=== PATIENT | male | born 1935 | race Caucasian/White ===

== ENCOUNTER → 2016-10-28 | Outpatient (CLI) | payer OTHER, BC ==
[2016-10-28 09:15] LABS: INR 1.1 (0.9-1.1); PROTHROMBIN TIME (PATIENT) 12.3 SECONDS (9.0-12.0)
== END | disposition home or self-care (01) ==
LOC: C.LABSPEC 08:51
PROVIDERS: ATTEND Internal Medicine
DX: I48.91 Unspecified atrial fibrillation (principal); Z51.81 Encounter for therapeutic drug level monitoring; Z79.01 Long term (current) use of anticoagulants

== ENCOUNTER → 2016-10-30 | Outpatient (CLI) | payer OTHER, BC ==
[2016-10-30 12:06] LABS: INR 1.6 (0.9-1.1); PROTHROMBIN TIME (PATIENT) 17.1 SECONDS (9.0-12.0)
== END | disposition home or self-care (01) ==
LOC: C.LABSPEC 08:35
PROVIDERS: ATTEND Pharmacist Pharmacotherapy
DX: Z51.81 Encounter for therapeutic drug level monitoring (principal); Z79.01 Long term (current) use of anticoagulants; I48.91 Unspecified atrial fibrillation

== ENCOUNTER → 2016-11-02 | Outpatient (CLI) | payer OTHER, BC ==
[2016-11-02 09:48] LABS: INR 2.6 (0.9-1.1); PROTHROMBIN TIME (PATIENT) 29.5 SECONDS (9.0-12.0)
== END | disposition home or self-care (01) ==
LOC: C.LABVPSUA 09:21
PROVIDERS: ATTEND Pharmacist Pharmacotherapy
DX: I48.91 Unspecified atrial fibrillation (principal); Z79.01 Long term (current) use of anticoagulants

== ENCOUNTER → 2016-11-06 | Outpatient (CLI) | payer OTHER, BC ==
[2016-11-06 09:54] LABS: INR 2.5 (0.9-1.1); PROTHROMBIN TIME (PATIENT) 28.2 SECONDS (9.0-12.0)
== END ==
LOC: C.LABVPSUA 09:19
PROVIDERS: ATTEND Pharmacist Pharmacotherapy
DX: I48.91 Unspecified atrial fibrillation (principal); Z51.81 Encounter for therapeutic drug level monitoring; Z79.01 Long term (current) use of anticoagulants

== ENCOUNTER → 2016-11-13 | Outpatient (CLI) | payer OTHER, BC ==
[2016-11-13 10:36] LABS: INR 3.2 (0.9-1.1); PROTHROMBIN TIME (PATIENT) 35.6 SECONDS (9.0-12.0)
== END | disposition home or self-care (01) ==
LOC: C.LABVPSUW 09:28
PROVIDERS: ATTEND Pharmacist Pharmacotherapy
DX: I48.91 Unspecified atrial fibrillation (principal); Z51.81 Encounter for therapeutic drug level monitoring; Z79.01 Long term (current) use of anticoagulants

== ENCOUNTER → 2016-11-20 | Outpatient (CLI) | payer OTHER, BC ==
[2016-11-20 09:49] LABS: INR 2.5 (0.9-1.1); PROTHROMBIN TIME (PATIENT) 27.6 SECONDS (9.0-12.0)
== END | disposition home or self-care (01) ==
LOC: C.LABVPSUA 08:42
PROVIDERS: ATTEND Pharmacist Pharmacotherapy
DX: I48.91 Unspecified atrial fibrillation (principal); Z51.81 Encounter for therapeutic drug level monitoring; Z79.01 Long term (current) use of anticoagulants

== ENCOUNTER → 2016-11-30 | Outpatient (CLI) | payer OTHER, BC | END | disposition home or self-care (01) | LOC: C.LABVPSUW 09:28 | PROVIDERS: ATTEND Pharmacist Pharmacotherapy | DX: Z51.81 Encounter for therapeutic drug level monitoring (principal); Z79.01 Long term (current) use of anticoagulants; I48.91 Unspecified atrial fibrillation ==

== ENCOUNTER → 2016-12-03 | Outpatient (CLI) | payer OTHER, BC ==
[2016-12-03 10:42] LABS: INR 2.3 (0.9-1.1); PROTHROMBIN TIME (PATIENT) 25.4 SECONDS (9.0-12.0)
== END | disposition home or self-care (01) ==
LOC: C.LABVPSUW 07:53
PROVIDERS: ATTEND Pharmacist Pharmacotherapy
DX: I48.91 Unspecified atrial fibrillation (principal); Z51.81 Encounter for therapeutic drug level monitoring; Z79.01 Long term (current) use of anticoagulants

== ENCOUNTER → 2016-12-24 | Outpatient (CLI) | payer OTHER, BC ==
[2016-12-24 09:42] LABS: INR 2.3 (0.9-1.1); PROTHROMBIN TIME (PATIENT) 25.4 SECONDS (9.0-12.0)
== END | disposition home or self-care (01) ==
LOC: C.LABVPSUA 09:22
PROVIDERS: ATTEND Pharmacist Pharmacotherapy
DX: I48.91 Unspecified atrial fibrillation (principal); Z51.81 Encounter for therapeutic drug level monitoring; Z79.01 Long term (current) use of anticoagulants

== ENCOUNTER → 2017-01-20 | Outpatient (CLI) | payer OTHER, BC ==
[2017-01-20 10:25] LABS: INR 1.6 (0.9-1.1); PROTHROMBIN TIME (PATIENT) 17.1 SECONDS (9.0-12.0)
== END | disposition home or self-care (01) ==
LOC: C.LABSPEC 10:01
PROVIDERS: ATTEND Pharmacist Pharmacotherapy
DX: Z51.81 Encounter for therapeutic drug level monitoring (principal); Z79.01 Long term (current) use of anticoagulants; I48.91 Unspecified atrial fibrillation

== ENCOUNTER → 2017-02-17 | Outpatient (CLI) | payer OTHER, BC ==
[2017-02-17 10:14] LABS: INR 2.4 (0.9-1.1); PROTHROMBIN TIME (PATIENT) 26.7 SECONDS (9.0-12.0)
== END | disposition home or self-care (01) ==
LOC: C.LABVPSUA 09:44
PROVIDERS: ATTEND Pharmacist Pharmacotherapy
DX: I48.91 Unspecified atrial fibrillation (principal); Z51.81 Encounter for therapeutic drug level monitoring; Z79.01 Long term (current) use of anticoagulants

== ENCOUNTER → 2017-03-18 | Outpatient (CLI) | payer OTHER, BC ==
[2017-03-18 09:58] LABS: INR 2.3 (0.9-1.1); PROTHROMBIN TIME (PATIENT) 25.9 SECONDS (9.0-12.0)
== END | disposition home or self-care (01) ==
LOC: C.LABVPSUA 09:07
PROVIDERS: ATTEND Pharmacist Pharmacotherapy
DX: I48.91 Unspecified atrial fibrillation (principal); Z51.81 Encounter for therapeutic drug level monitoring; Z79.01 Long term (current) use of anticoagulants

== ENCOUNTER → 2017-04-15 | Outpatient (CLI) | payer OTHER, BC ==
[2017-04-15 09:23] LABS: INR 3.2 (0.9-1.1)
== END | disposition home or self-care (01) ==
LOC: C.LABVPSUA 08:56
PROVIDERS: ATTEND Pharmacist Pharmacotherapy
DX: I48.91 Unspecified atrial fibrillation (principal); Z51.81 Encounter for therapeutic drug level monitoring; Z79.01 Long term (current) use of anticoagulants

== ENCOUNTER → 2017-05-14 | Outpatient (CLI) | payer OTHER, BC ==
[2017-05-14 09:29] LABS: INR 2.3 (0.9-1.1); PROTHROMBIN TIME (PATIENT) 24.2 SECONDS (9.0-12.0)
== END | disposition home or self-care (01) ==
LOC: C.LABVPSUA 08:56
PROVIDERS: ATTEND Pharmacist Pharmacotherapy
DX: I48.91 Unspecified atrial fibrillation (principal); Z51.81 Encounter for therapeutic drug level monitoring; Z79.01 Long term (current) use of anticoagulants

== ENCOUNTER → 2017-06-11 | Outpatient (CLI) | payer OTHER, BC ==
[2017-06-11 09:40] LABS: INR 2.4 (0.9-1.1)
== END | disposition home or self-care (01) ==
LOC: C.LABVPSUA 08:33
PROVIDERS: ATTEND Pharmacist Pharmacotherapy
DX: Z51.81 Encounter for therapeutic drug level monitoring (principal); Z79.01 Long term (current) use of anticoagulants; I48.91 Unspecified atrial fibrillation

== ENCOUNTER → 2017-07-09 | Outpatient (CLI) | payer OTHER, BC ==
[2017-07-09 09:20] LABS: INR 2.6 (0.9-1.1)
== END | disposition home or self-care (01) ==
LOC: C.LABVPSUA 08:48
PROVIDERS: ATTEND Pharmacist Pharmacotherapy
DX: I48.91 Unspecified atrial fibrillation (principal); Z51.81 Encounter for therapeutic drug level monitoring; Z79.01 Long term (current) use of anticoagulants

== ENCOUNTER 2017-08-05 09:08 | Observation (INO) | payer OTHER, BC ==
[~2017-08-05] VITALS: Ht 180.3 cm; Wt 78.2 kg
[2017-08-05] MEDS ORDERED: DILTIAZEM HCL 5 MG/ML 5 ML VIAL IV STA (09:33)
[2017-08-05] MEDS ORDERED: DILTIAZEM HCL 5 MG/ML 5 ML VIAL ONE (09:33)
[2017-08-05] MEDS ORDERED: LORAZEPAM 2 MG/ML 1 ML VIAL ONE (09:34)
[2017-08-05] MEDS ORDERED: DILTIAZEM BOLUS / DRIP IV STA (09:41)
[2017-08-05 09:48] LABS: BASO % 0.2 %; BASO ABS # 0.02 K/uL (0-0.2); EOS % 0.7 %; EOS ABS # 0.07 K/uL (0-0.5); HEMATOCRIT 45.6 % (42-52); HEMOGLOBIN 15.6 g/dL (14.0-18.0); IG# 0.02 K/uL (0.00-0.02); LYMPH % 12.5 %; LYMPH ABS # 1.25 K/uL (1.2-3.4); MEAN CELL VOLUME 102.7 fL (80-100); MEAN CORPUSCULAR HEMOGLOBIN 35.1 pg (25-34); MEAN CORPUSCULAR HGB CONC 34.2 g/dl (32-36); MONO % 10.6 %; MONO ABS # 1.06 K/uL (0.11-0.59); NEUT % 75.8 %; NEUT ABS # 7.55 K/uL (1.4-6.5); PLATELET COUNT 161 K/uL (130-400); RED CELL DISTRIBUTION WIDTH CV 14.7 % (11.5-14.5); RED CELL DISTRIBUTION WIDTH SD 54.7 fL (36.4-46.3); WHITE BLOOD COUNT 9.97 K/uL (4.8-10.8)
[2017-08-05] MEDS ORDERED: SIMV20TA2 PO (09:54)
[2017-08-05] MEDS ORDERED: LISI-461 PO (09:54)
[2017-08-05] MEDS ORDERED: CALC-354 PO (09:54)
[2017-08-05] MEDS ORDERED: ASPI81TA28 PO (09:54)
[2017-08-05] MEDS ORDERED: CHOL1000 PO (09:54)
[2017-08-05] MEDS ORDERED: WARF5TAB7 PO (09:54)
[2017-08-05] MEDS ORDERED: ASPIRIN 81 MG CHEW PO STA (09:57)
[2017-08-05] MEDS ORDERED: DILTIAZEM HCL INJ 125 MG in DEXTROSE 5% 100ML IV PRN (10:00)
[2017-08-05 10:02] LABS: INR 1.9 (0.9-1.1); PTT PATIENT 32.3 SECONDS (21.0-31.0)
--- NOTE | 2017-08-05 10:02 | DIAGNOSTIC IMAGING REPORT ---
CHEST ONE VIEW PORTABLE CLINICAL HISTORY: Atypical chest pain COMPARISON STUDY: None FINDINGS: The heart is enlarged. There is no lobar consolidation. There is slight elevation of the right lung interstitial markings. This could represent asymmetric edema. An interstitial inflammatory process could appear similar. A lower right paraspinal opacity, likely represents the left atrium.[ No pleural effusions are visualized IMPRESSION: 1. Cardiomegaly 2. Subtle elevation of the right lung intersitial markings. Asymmetric edema vs. an interstitial inflammatory process Electronically signed by: Danilo Chisholm M.D. 08/05/2017 10:01 AM Dictated Date/Time: 08/05/2017 9:57 AM
[2017-08-05 10:06] LABS: BLOOD UREA NITROGEN 17 mg/dl (7-18); CALCIUM 8.9 mg/dl (8.5-10.1); CARBON DIOXIDE 25 mmol/L (21-32); CREATININE 1.08 mg/dl (0.60-1.40); GLUCOSE 134 mg/dl (70-99); POTASSIUM 4.3 mmol/L (3.5-5.1); SODIUM 137 mmol/L (136-145)
--- NOTE | 2017-08-05 10:32 | EMERGENCY ROOM VISIT NOTE ---
History Report prepared by Melyssa: Edmundo Griffith Under the Supervision of: Dr. Brandon Farmer M.D. First contact with patient: 09:33 Chief Complaint: OTHER COMPLAINT Stated Complaint: UNCONTROLLABLE SHAKING History of Present Illness The patient is an 81 year old male who presents to the Emergency Room with complaints of constant shakiness starting this morning. The patient states that when he got out of bed this morning he was shaking, and he has been feeling some palpitations. The patient additionally states that he has been coughing since yesterday, though he has not been coughing up blood. He denies any chest pain, abdominal pain, headache, hematuria, and bloody stools. The patient has a history of A-fib, and he is currently on Coumadin, and his last Coumadin level was a month ago at 2.3. He reports that he had an echo done yesterday, and he states that he has a history of an aortic aneurysm repair. The patient denies any recent falls, recent travel, recent long plane or car rides, recent travels , and recent steroid use. The patient does not drink alcohol. He additionally notes that his nose has been blue for many years. He is currently on simvastatin and Lisinopril. He did not take his medications this morning, and he did not eat breakfast. 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 Source of History: patient Onset: this morning Position: other (global) Quality: other (shakiness) Timing: constant Associated Symptoms: + cough, No headache, No chest pain, No abdominal pain Review of Systems See HPI for pertinent positives and negatives. A total of ten systems were reviewed and were otherwise negative. Past Medical & Surgical Medical Problems: (1) Amputation of right arm (2) Chronic atrial fibrillation (3) H/O carcinoma of bladder (4) HLD (hyperlipidemia) (5) HTN (hypertension) (6) Hyperparathyroidism (7) Non-ischemic cardiomyopathy (8) Nonobstructive atherosclerosis of coronary artery (9) PAD (peripheral artery disease) Surgical Problems: (1) S/P AAA repair Social History Smoking Status: Former Smoker Marital Status: Housing Status: lives with family Occupation Status: retired Current/Historical Medications Scheduled Aspirin (Aspirin Ec), 81 MG PO PM Calcium Carbonate-Cholecalcife (Caltrate 600+D), 1 TAB PO BID Cholecalciferol (Vitamin D3), 1,000 INTER.UNIT PO PM Lisinopril (Zestril), 10 MG PO PM Simvastatin (Zocor), 20 MG PO QPM Warfarin Sod (Coumadin), 0.5 TAB PO MoWeFr Warfarin Sod (Coumadin), 1 TAB PO SuTuThSa Allergies Coded Allergies: No Known Allergies (Verified , 08/05/17) Physical Exam Vital Signs Date Time Temp Pulse Resp B/P (MAP) Pulse Ox O2 Delivery O2 Flow Rate FiO2 08/05/17 12:45 115/67 08/05/17 12:41 81 17 114/64 97 Nasal Cannula 2.0 08/05/17 12:40 79 23 92 08/05/17 12:35 96/69 08/05/17 12:33 98 17 97 Nasal Cannula 2.0 08/05/17 12:29 08/05/17 12:27 142/66 08/05/17 12:25 134/85 08/05/17 12:23 140/107 08/05/17 12:20 132/107 08/05/17 12:19 133/82 08/05/17 12:18 87 27 94 Nasal Cannula 2.0 08/05/17 12:17 141/87 08/05/17 12:15 159/81 08/05/17 12:13 142/77 08/05/17 12:11 153/80 08/05/17 12:09 152/81 08/05/17 12:07 149/107 08/05/17 12:05 148/103 08/05/17 12:03 93 22 94 Nasal Cannula 2.0 08/05/17 12:02 138/95 08/05/17 12:01 118/80 08/05/17 11:59 155/90 08/05/17 11:57 94/88 08/05/17 11:54 125/94 08/05/17 11:53 142/89 08/05/17 11:50 129/93 08/05/17 11:48 98 27 132/88 93 Nasal Cannula 2.0 08/05/17 11:47 116/95 08/05/17 11:45 140/82 08/05/17 11:43 127/78 08/05/17 11:41 132/119 3/8/18 11:39 130/99 08/05/17 11:35 149/91 08/05/17 11:33 86 25 148/87 94 Nasal Cannula 2.0 08/05/17 11:28 117/97 08/05/17 11:26 97 22 124/77 94 Nasal Cannula 2.0 08/05/17 11:25 124/77 08/05/17 11:23 118/78 08/05/17 11:21 158/88 08/05/17 11:19 131/80 08/05/17 11:17 136/66 08/05/17 11:15 105 23 138/110 90 Nasal Cannula 2.0 08/05/17 11:02 82 22 153/98 98 Nasal Cannula 2.0 08/05/17 10:42 96 27 130/84 99 Nasal Cannula 2.0 08/05/17 10:35 Nasal Cannula 2.0 08/05/17 10:30 121 34 113/89 98 Room Air 08/05/17 10:27 115 08/05/17 10:23 160/84 08/05/17 10:22 93 29 100 08/05/17 10:20 81 30 135/75 08/05/17 10:18 81 26 145/70 08/05/17 10:17 128/87 08/05/17 10:16 97 18 100 08/05/17 10:15 137/88 08/05/17 10:14 93 15 99 08/05/17 10:13 132/82 08/05/17 10:12 92 23 98 08/05/17 10:11 150/79 08/05/17 10:10 90 21 08/05/17 10:08 89 28 121/91 08/05/17 10:06 97 22 125/78 08/05/17 10:04 96 24 130/85 100 08/05/17 10:03 134/72 08/05/17 10:02 89 20 08/05/17 10:01 149/84 08/05/17 10:00 97 26 08/05/17 09:59 168/95 08/05/17 09:58 95 20 100 08/05/17 09:56 82 26 100 08/05/17 09:55 169/76 08/05/17 09:54 90 27 96 08/05/17 09:52 95 14 135/76 08/05/17 09:50 97 22 121/66 08/05/17 09:49 97 Room Air 08/05/17 09:48 102 22 115/94 08/05/17 09:46 105 28 138/72 08/05/17 09:45 114/78 08/05/17 09:44 106 16 08/05/17 09:42 113 19 08/05/17 09:41 146/85 08/05/17 09:40 122 24 08/05/17 09:38 136 20 08/05/17 09:36 153 33 08/05/17 09:35 149 08/05/17 09:34 146 29 08/05/17 09:32 147 25 08/05/17 09:31 154/89 08/05/17 09:27 151/89 08/05/17 09:12 37.4 81 18 162/102 100 Room Air Physical Exam Physical Exam GENERAL: He is oriented to person, place, and time. He appears well-developed and well-nourished. He does not appear distressed. ____ HENT: Exam performed. Head: Normocephalic and atraumatic. Right Ear: External ear normal. No mastoid tenderness. Left Ear: External ear normal. No mastoid tenderness. Mouth/Throat: The oropharynx is clear and moist. No trismus in the jaw. No dental abscesses or uvula swelling. No oropharyngeal exudate or tonsillar abscesses. ____ EYES: Conjunctivae and EOM are normal. Pupils are equal, round, and reactive to light. Right eye exhibits no discharge. Left eye exhibits no discharge. No scleral icterus. ____ NECK: Normal range of motion. Neck supple. No JVD present. No spinous process tenderness present. No carotid bruit present. No rigidity. No tracheal deviation and normal range of motion present. No Brudzinski's sign and no Kernig 's sign noted. ____ CV: Tachycardic with an irregular rhythm, normal heart sounds and intact distal pulses. There is no peripheral edema. Palpable radial pulses bue. ____ PULM/CHEST: Effort normal and breath sounds normal. No respiratory distress. No stridor. He has no wheezes. He has no rales. Chest Wall: He exhibits no tenderness. ____ ABD: The abdomen is soft. Bowel sounds are normal. He has no distension. No mass is present. There is no tenderness. There is no rebound, no guarding, no Patel's sign and no tenderness at McBurney's point. Rovsig negative MUSC/SKEL: Normal range of motion. There is no peripheral edema, tenderness. ___ LYMPH: No cervical adenopathy. ____ NEURO: Tremor in all 4 extremities SKIN: Scarring over the right upper extremity shoulder area which is chronic from arm surgery more than a decade ago. Discoloration of his nose which is also baseline per the family. PSYCH: He has a normal mood and affect. His behavior is normal. Judgment and thought content normal. ____ Medical Decision & Procedures ER Provider Diagnostic Interpretation: Radiology results as stated below per my review and radiologist interpretation: CHEST ONE VIEW PORTABLE CLINICAL HISTORY: Atypical chest pain COMPARISON STUDY: None FINDINGS: The heart is enlarged. There is no lobar consolidation. There is slight elevation of the right lung interstitial markings. This could represent asymmetric edema. An interstitial inflammatory process could appear similar. A lower right paraspinal opacity, likely represents the left atrium.[ No pleural effusions are visualized IMPRESSION: 1. Cardiomegaly 2. Subtle elevation of the right lung intersitial markings. Asymmetric edema vs. an interstitial inflammatory process Electronically signed by: Danilo Chisholm M.D. 08/05/2017 10:01 AM Dictated Date/Time: 08/05/2017 9:[address] NON[address]AST CT DOSE: 614.27 mGy.cm HISTORY: Uncontrolled shaking this morning TECHNIQUE: Multiaxial CT images of the head were performed without the use of intravenous contrast. Automated exposure control was utilized for this study. A dose lowering technique was utilized adhering to the principles of ALARA. Comparison: None. Findings: The paranasal sinuses and mastoid air cells are clear. The calvarium and skull base are intact. There is no mass, hematoma, midline shift, acute infarct. White matter hypodensity is nonspecific but suggestive of microvascular ischemic change. The ventricles and sulci demonstrate mild age-related involutional changes. Impression: No acute intracranial abnormality. Electronically signed by: Abner Adhikari M.D. 08/05/2017 11:07 AM Dictated Date/Time: 08/05/2017 11:02 AM Laboratory Results 08/05/17 09:36 Red Blood Count 4.44, Mean Corpuscular Volume 102.7, Mean Corpuscular Hemoglobin 35.1, Mean Corpuscular Hemoglobin Concent 34.2, Mean Platelet Volume 11.0, Neutrophils (%) (Auto) 75.8, Lymphocytes (%) (Auto) 12.5, Monocytes (%) ( Auto) 10.6, Eosinophils (%) (Auto) 0.7, Basophils (%) (Auto) 0.2, Neutrophils # (Auto) 7.55, Lymphocytes # (Auto) 1.25, Monocytes # (Auto) 1.06, Eosinophils # ( Auto) 0.07, Basophils # (Auto) 0.02 08/05/17 09:36 Test 08/05/17 09:15 08/05/17 09:36 08/05/17 09:42 Bedside Glucose 76 mg/dl (70-99) White Blood Count 9.97 K/uL (4.8-10.8) Red Blood Count 4.44 M/uL (4.7-6.1) Hemoglobin 15.6 g/dL (14.0-18.0) Hematocrit 45.6 % (42-52) Mean Corpuscular Volume 102.7 fL (80-100) Mean Corpuscular Hemoglobin 35.1 pg (25-34) Mean Corpuscular Hemoglobin Concent 34.2 g/dl (32-36) Platelet Count 161 K/uL (130-400) Mean Platelet Volume 11.0 fL (7.4-10.4) Neutrophils (%) (Auto) 75.8 % Lymphocytes (%) (Auto) 12.5 % Monocytes (%) (Auto) 10.6 % Eosinophils (%) (Auto) 0.7 % Basophils (%) (Auto) 0.2 % Neutrophils # (Auto) 7.55 K/uL (1.4-6.5) Lymphocytes # (Auto) 1.25 K/uL (1.2-3.4) Monocytes # (Auto) 1.06 K/uL (0.11-0.59) Eosinophils # (Auto) 0.07 K/uL (0-0.5) Basophils # (Auto) 0.02 K/uL (0-0.2) RDW Standard Deviation 54.7 fL (36.4-46.3) RDW Coefficient of Variation 14.7 % (11.5-14.5) Immature Granulocyte % (Auto) 0.2 % Immature Granulocyte # (Auto) 0.02 K/uL (0.00-0.02) Prothrombin Time 20.0 SECONDS (9.0-12.0) Prothromb Time International Ratio 1.9 (0.9-1.1) Activated Partial Thromboplast Time 32.3 SECONDS (21.0-31.0) Partial Thromboplastin Ratio 1.2 Anion Gap 7.0 mmol/L (3-11) Est Creatinine Clear Calc Drug Dose 57.1 ml/min Estimated GFR () 74.2 Estimated GFR (Non- 64.0 BUN/Creatinine Ratio 15.7 (10-20) Calcium Level 8.9 mg/dl (8.5-10.1) Troponin I < 0.015 ng/ml (0-0.045) Pro-B-Type Natriuretic Peptide 2348 pg/ml (0-1800) Thyroid Stimulating Hormone (TSH) 1.960 uIu/ml (0.300-4.500) Bedside Troponin I < 0.030 ng/ml (0-0.045) Laboratory results reviewed by me Medications Administered Medications (Trade) Dose Ordered Sig/Mary Route Start Time Stop Time Status Last Admin Dose Admin Diltiazem HCl (Cardizem Inj) 20 mg NOW STAT IV 08/05/17 09:33 08/05/17 09:35 DC 08/05/17 09:34 20 MG Diltiazem HCl (Cardizem Bolus / Drip) 1 ea NOW STAT IV 08/05/17 09:41 08/05/17 09:43 DC 08/05/17 09:56 1 EA Aspirin (Aspirin Chew) 324 mg NOW STAT PO 08/05/17 09:57 08/05/17 09:58 DC 08/05/17 09:57 324 MG ECG Per My Interpretation Indication: palpitations, tachycardia Rate (beats per minute): 155 Rhythm: atrial fibrillation Findings: other (QRS interval was 142, QTc was 501.) Change: REPEAT EKG: A-fib at 106 bpm. QRS interval was 132, QTc 472, PVC present, no ST elevation or depression. ED Course 928: I was called to the bedside by nursing for immediate evaluation. The patient was evaluated in room C4. A complete history and physical exam was performed. Patient on arrival was tachycardic with a rate of 150s appears to be in A-fib on monitor and irregular on auscultation. Patient was having some mild tremor. The patients EKG was A-fib with a rate of 155. QRS interval was 142, QTc was 501. Patient has a history of a A-fib and states that he only takes Lisinopril for his A-fib. 20mg Cardizem Bolus was given. After the bolus the tremor resolved, and he states that he feels better. Repeat EKG shows A-fib at 106, QRS interval 132, QTC 472, PVC present, no ST elevation or ST depression. 0958: Vital signs stable. After receiving the bolus the patient stopped having tremors. He states that he feels much better and his symptoms have resolved. Patient continues to have a tremor in the right upper extremity, however he and his family states that this is baseline for him after having surgery on the right upper extremity more than a decade ago. 1129: Vital signs stable. Labs within normal limits with the exception of INR of 1.9. ProBNP is also elevated at 2348. Troponin is negative. Chest x-ray negative. Discussed the patient's case with Jessica Landin PA-C [facility] Hospitalist. The patient will be evaluated for further treatment and disposition. 1140: I discussed the patient's case with Dr. Amador- Cardiology, and he was made aware that the patient is going to be evaluated by the hospitalist. Medical Decision 0929: I was called to the bedside by nursing for immediate evaluation. The patient was evaluated in room C4. A complete history and physical exam was performed. Patient on arrival was tachycardic with a rate of 150s appears to be in A-fib on monitor and irregular on auscultation. Patient was having some mild tremor. The patients EKG was A-fib with a rate of 155. QRS interval was 142, QTc was 501. Patient has a history of a A-fib and states that he only takes Lisinopril for his A-fib. 20mg Cardizem Bolus was given. After the bolus the tremor resolved, and he states that he feels better. Repeat EKG shows A-fib at 106, QRS interval 132, QTC 472, PVC present, no ST elevation or ST depression. 0958: Vital signs stable. After receiving the bolus the patient stopped having tremors. He states that he feels much better and his symptoms have resolved. Patient continues to have a tremor in the right upper extremity, however he and his family states that this is baseline for him after having surgery on the right upper extremity more than a decade ago. 1129: Vital signs stable. Labs within normal limits with the exception of INR of 1.9. ProBNP is also elevated at 2348. Troponin is negative. Chest x-ray negative. Discussed the patient's case with Jessica Jacob Hospitalist. The patient will be evaluated for further treatment and disposition. 1140: I discussed the patient's case with Dr. Emi Fuller, and he was made aware that the patient is going to be evaluated by the hospitalist Medication Reconcilliation Current Medication List: was personally reviewed by me Blood Pressure Screening Patient's blood pressure: Elevated blood pressure Monitored by the hospitalist. Consults Time Called: 1121 Consulting Physician: [facility] Returned Call: [phone] [facility] the [facility] The patient will be evaluated for further treatment and disposition. Additional Consults: Time Called: 1113 Consulted Physician: Dr. Marjorie Fuller Returned Call: 1140 Additional Comments: I discussed the patient's case with Dr. Emi Fuller, and he was made aware that the patient is going to be evaluated by the hospitalist. Impression Primary Impression: Atrial fibrillation with RVR Critical Care I have personally spent greater than 52 minutes of critical care time in the direct management of this patient. This includes bedside care, interpretation of diagnostic studies, and testing, discussion with consultants, patient, and family members, and other required patient management activities. This 52 minutes is in excess of all separately billable procedures. Scribe Attestation The scribe's documentation has been prepared under my direction and personally reviewed by me in its entirety. I confirm that the note above accurately reflects all work, treatment, procedures, and medical decision making performed by me. The chart was completed utilizing [employer] voice recognition software. Grammatical errors, random word insertions, pronoun errors, and incomplete sentences are an occasional consequence of this system due to software limitations, ambient noise, and hardware issues. Any formal questions or concerns about the content, text, or information contained within the body of this dictation should be directly addressed to the physician for clarification. Departure Information Dispostion Being Evaluated By Hospitalist Referrals No Doctor, Assigned (PCP) Patient Instructions [facility]
--- NOTE | 2017-08-05 11:09 | DIAGNOSTIC IMAGING REPORT ---
HEAD CT NONCONTRAST CT DOSE: 614.27 mGy.cm HISTORY: Uncontrolled shaking this morning TECHNIQUE: Multiaxial CT images of the head were performed without the use of intravenous contrast. Automated exposure control was utilized for this study. A dose lowering technique was utilized adhering to the principles of ALARA. Comparison: None. Findings: The paranasal sinuses and mastoid air cells are clear. The calvarium and skull base are intact. There is no mass, hematoma, midline shift, acute infarct. White matter hypodensity is nonspecific but suggestive of microvascular ischemic change. The ventricles and sulci demonstrate mild age-related involutional changes. Impression: No acute intracranial abnormality. Electronically signed by: Abner Adhikari M.D. 08/05/2017 11:07 AM Dictated Date/Time: 08/05/2017 11:02 AM
[2017-08-05] MEDS ORDERED: ACETAMINOPHEN 325 MG TAB PO PRN (12:45)
[2017-08-05] MEDS ORDERED: ALUMINUM/MAGNESIUM/SIMETH (MAALOX MAX) 30 ML UDC PO PRN (12:45)
[2017-08-05] MEDS ORDERED: DILTIAZEM HCL 30 MG TAB PO ONE (13:00)
[2017-08-05 13:10] VITALS: Ht 180.3 cm; Wt 78.2 kg
[2017-08-05] MEDS ORDERED: CMD5 PO ×2 (13:21)
[2017-08-05] MEDS ORDERED: IV FLUIDS COMPLETED PRN (13:45)
--- NOTE | 2017-08-05 13:46 | History and Physical ---
History & Physical Date & Time of Service: Aug 05, 2017 at 13:28 Chief Complaint: Uncontrollable Shaking Primary Care Physician: Nathalie Moise D.O. History of Present Illness Source: patient, clinic records, hospital records This is a 81yo M with a PMH of persistent A Fib (on coumadin), HTN, HLD and other medical problems listed below who presents with shakiness this AM. Patient started to develop nasal congestion yesterday and took NyQuil before bed. In addition to shakiness today, patient notes that his heart was beating faster than normal. Came into the ED for further evaluation. Denies fever, chills, lightheadedness, syncope, visual changes, sore throat, cough, chest pain , SOB, abd pain, nausea, vomiting, bowel/bladder changes or LE swelling. The patient has a history of A fib and he is currently on Coumadin. Last INR was done a month ago and was 2.3. Has not been placed on a beta joselo due to past episodes of symptomatic bradycardia, per chart review. Was seen by Dr. Burch in cardiology clinic yesterday for some mild chest pain that was determined to be MSK in origin. During visit, patient had an echo performed with EF of 50-54%, moderately increased LV wall thickness and septal motion abnormality consistent with intraventricular conduction delay. Patient does not drink alcohol regularly and his last drink was 2 weeks ago. Denies any dietary changes recently or diarrhea. Has h/o an aortic aneurysm repair in 2012. 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 (2) Chronic atrial fibrillation Permanent Comment: on coumadin Status: Chronic (3) H/O carcinoma of bladder Status: Resolved (4) HLD (hyperlipidemia) Status: Chronic (5) HTN (hypertension) Status: Chronic (6) Hyperparathyroidism Status: Chronic (7) Non-ischemic cardiomyopathy Status: Chronic (8) Nonobstructive atherosclerosis of coronary artery Status: Chronic (9) PAD (peripheral artery disease) Status: Chronic Surgical Problems: (1) S/P AAA repair Permanent Comment: Dec 2012 Status: Chronic Social History Smoking Status: Former Smoker Alcohol Use: occasionally (1x/month) Marital Status: Housing status: lives with significant other (independent living at [place] ) Occupational Status: retired Allergies Coded Allergies: No Known Allergies (Verified , 3/8/18) Home Medications Scheduled Aspirin (Aspirin Ec), 81 MG PO PM Calcium Carbonate-Cholecalcife (Caltrate 600+D), 1 TAB PO BID Cholecalciferol (Vitamin D3), 1,000 INTER.UNIT PO PM Lisinopril (Zestril), 10 MG PO PM Simvastatin (Zocor), 20 MG PO QPM Warfarin Sod (Coumadin), 0.5 TAB PO MoWeFr Warfarin Sod (Coumadin), 1 TAB PO SuTuThSa Review of Systems Ten systems reviewed and negative except as noted in the HPI. Physical Exam Vital Signs Date Time Temp Pulse Resp B/P (MAP) Pulse Ox O2 Delivery O2 Flow Rate FiO2 08/05/17 12:56 80 17 114/64 97 Nasal Cannula 2.0 08/05/17 12:41 81 17 114/64 97 Nasal Cannula 2.0 08/05/17 12:35 96/69 08/05/17 12:33 98 17 97 Nasal Cannula 2.0 08/05/17 12:29 08/05/17 12:27 142/66 08/05/17 12:25 134/85 08/05/17 12:23 140/107 08/05/17 12:20 132/107 08/05/17 12:19 133/82 08/05/17 12:18 87 27 94 Nasal Cannula 2.0 08/05/17 12:17 141/87 08/05/17 12:15 159/81 08/05/17 12:13 142/77 08/05/17 12:11 153/80 08/05/17 12:09 152/81 08/05/17 12:07 149/107 08/05/17 12:05 148/103 08/05/17 12:03 93 22 94 Nasal Cannula 2.0 08/05/17 12:02 138/95 08/05/17 12:01 118/80 08/05/17 11:59 155/90 08/05/17 11:57 94/88 08/05/17 11:54 125/94 08/05/17 11:53 142/89 08/05/17 11:50 129/93 08/05/17 11:48 98 27 132/88 93 Nasal Cannula 2.0 08/05/17 11:47 116/95 08/05/17 11:45 140/82 08/05/17 11:43 127/78 08/05/17 11:41 132/119 08/05/17 11:39 130/99 08/05/17 11:35 149/91 08/05/17 11:33 86 25 148/87 94 Nasal Cannula 2.0 08/05/17 11:28 117/97 08/05/17 11:26 97 22 124/77 94 Nasal Cannula 2.0 08/05/17 11:25 124/77 08/05/17 11:23 118/78 08/05/17 11:21 158/88 08/05/17 11:19 131/80 08/05/17 11:17 136/66 08/05/17 11:15 105 23 138/110 90 Nasal Cannula 2.0 08/05/17 11:02 82 22 153/98 98 Nasal Cannula 2.0 08/05/17 10:42 96 27 130/84 99 Nasal Cannula 2.0 08/05/17 10:35 Nasal Cannula 2.0 08/05/17 10:30 121 34 113/89 98 Room Air 08/05/17 10:27 115 08/05/17 10:23 160/84 08/05/17 10:22 93 29 100 08/05/17 10:20 81 30 135/75 08/05/17 10:18 81 26 145/70 08/05/17 10:17 128/87 08/05/17 10:16 97 18 100 08/05/17 10:15 137/88 08/05/17 10:14 93 15 99 08/05/17 10:13 132/82 08/05/17 10:12 92 23 98 08/05/17 10:11 150/79 08/05/17 10:10 90 21 08/05/17 10:08 89 28 121/91 08/05/17 10:06 97 22 125/78 08/05/17 10:04 96 24 130/85 100 08/05/17 10:03 134/72 08/05/17 10:02 89 20 08/05/17 10:01 149/84 08/05/17 10:00 97 26 08/05/17 09:59 168/95 08/05/17 09:58 95 20 100 08/05/17 09:56 82 26 100 08/05/17 09:55 169/76 08/05/17 09:54 90 27 96 08/05/17 09:52 95 14 135/76 08/05/17 09:50 97 22 121/66 08/05/17 09:49 97 Room Air 08/05/17 09:48 102 22 115/94 08/05/17 09:46 105 28 138/72 08/05/17 09:45 114/78 08/05/17 09:44 106 16 08/05/17 09:42 113 19 08/05/17 09:41 146/85 08/05/17 09:40 122 24 08/05/17 09:38 136 20 08/05/17 09:36 153 33 08/05/17 09:35 149 08/05/17 09:34 146 29 08/05/17 09:32 147 25 08/05/17 09:31 154/89 08/05/17 09:27 151/89 08/05/17 09:12 37.4 81 18 162/102 100 Room Air General Appearance: WD/WN, no apparent distress Head: normocephalic, atraumatic Eyes: normal inspection, PERRL, sclerae normal ENT: normal ENT inspection, hearing grossly normal, pharynx normal Neck: supple, thyroid normal, trachea midline Respiratory/Chest: chest non-tender, lungs clear, normal breath sounds, no respiratory distress, no accessory muscle use Cardiovascular: no murmur, normal peripheral pulses, + tachycardia, + irregularly irregular Abdomen/GI: non tender, soft, no organomegaly Back: normal inspection Extremities/Musculoskelatal: normal inspection, no calf tenderness, no pedal edema Neurologic/Psych: no motor/sensory deficits, alert, normal mood/affect, oriented x 3 Skin: normal color, warm/dry Diagnostics Laboratory Results Results Past 24 Hours Test 08/05/17 09:15 08/05/17 09:36 08/05/17 09:42 Range/Units Bedside Glucose 76 70-99 mg/dl White Blood Count 9.97 4.8-10.8 K/uL Red Blood Count 4.44 4.7-6.1 M/uL Hemoglobin 15.6 14.0-18.0 g/dL Hematocrit 45.6 42-52 % Mean Corpuscular Volume 102.7 80-100 fL Mean Corpuscular Hemoglobin 35.1 25-34 pg Mean Corpuscular Hemoglobin Concent 34.2 32-36 g/dl Platelet Count 161 130-400 K/uL Mean Platelet Volume 11.0 7.4-10.4 fL Neutrophils (%) (Auto) 75.8 % Lymphocytes (%) (Auto) 12.5 % Monocytes (%) (Auto) 10.6 % Eosinophils (%) (Auto) 0.7 % Basophils (%) (Auto) 0.2 % Neutrophils # (Auto) 7.55 1.4-6.5 K/uL Lymphocytes # (Auto) 1.25 1.2-3.4 K/uL Monocytes # (Auto) 1.06 0.11-0.59 K/uL Eosinophils # (Auto) 0.07 0-0.5 K/uL Basophils # (Auto) 0.02 0-0.2 K/uL RDW Standard Deviation 54.7 36.4-46.3 fL RDW Coefficient of Variation 14.7 11.5-14.5 % Immature Granulocyte % (Auto) 0.2 % Immature Granulocyte # (Auto) 0.02 0.00-0.02 K/uL Prothrombin Time 20.0 9.0-12.0 SECONDS Prothromb Time International Ratio 1.9 0.9-1.1 Activated Partial Thromboplast Time 32.3 21.0-31.0 SECONDS Partial Thromboplastin Ratio 1.2 Sodium Level 137 136-145 mmol/L Potassium Level 4.3 3.5-5.1 mmol/L Chloride Level 105 98-107 mmol/L Carbon Dioxide Level 25 21-32 mmol/L Anion Gap 7.0 3-11 mmol/L Blood Urea Nitrogen 17 7-18 mg/dl Creatinine 1.08 0.60-1.40 mg/dl Est Creatinine Clear Calc Drug Dose 57.1 ml/min Estimated GFR () 74.2 Estimated GFR (Non- 64.0 BUN/Creatinine Ratio 15.7 10-20 Random Glucose 134 70-99 mg/dl Calcium Level 8.9 8.5-10.1 mg/dl Troponin I < 0.015 0-0.045 ng/ml Pro-B-Type Natriuretic Peptide 2348 0-1800 pg/ml Thyroid Stimulating Hormone (TSH) 1.960 0.300-4.500 uIu/ml Bedside Troponin I < 0.030 0-0.045 ng/ml Diagnostic Radiology CT head: Impression: No acute intracranial abnormality. CXR: IMPRESSION: 1. Cardiomegaly 2. Subtle elevation of the right lung intersitial markings. Asymmetric edema vs. an interstitial inflammatory process EKG Atrial fibrillation with rapid ventricular response Left axis deviation Right bundle branch block Inferior infarct, age undetermined Impression Assessment and Plan This is a 81yo M with a PMH of persistent A Fib (on coumadin), HTN, HLD and other medical problems listed below who presents with shakiness this AM. A Fib with RVR: -H/o persistent A Fib -Likely caused by cold medication -Electrolytes, TSH wnl -Initially with HR in 150s -Cardizem bolus and drip initiated in ED -Able to transition to PO diltiazem in ED -HR now in 80-90s -Monitor on telemetry overnight -Cont home dose warfarin -INR of 1.9. Recheck in AM -Cardio consulted -Continue PO diltiazem QID -Will reassess tomorrow HTN: -Normotensive -Cont home dose lisinopril HLD: -Cont statin CAD: -Non-obstructive -No chest pain currently -Cont baby aspirin, statin DVT Ppx: Warfarin Code status: FULL PCP: [facility] Dispo: Observation telemetry. Plan to return to [facility] once medically stable. Patient seen in collaboration with Dr. Hull. Please see addendum. ATTENDING ADDENDUM care coordinated with YOAN Henriquez please refer to her notes for full details, I agree with her notes patient seen and examined, records reviewed by myself as well on exam, patient seen resting in bed had a fever spike of 39 denies headache, chest pain, dyspnea, has occasional dry cough no abdominal pain, changes with urination or BMs no other symptoms VS noted and reviewed oriented x 3 , not in distress, speaks in sentences with no effort nor accessory muscle use normal rate, irregularly irregular rhythm, no murmurs rales at the right base, no wheezing non distended, soft, nontender no bipedal edema, erythema, warmth no neuro deficits Hg 15 Crea 1.08 ASSESSMENT/PLAN> A FIB IN RVR now transitioned to PO Cardizem, HR controlled on Coumadin, INR 1.9 FEVER r/o FLU possible R sided Pneumonia, Comm Acq - check sputum culture blood culture Flu swab - empiric Doxycycline PO BID other diagnoses and plan of care as per YOAN Henriquez's notes Hamzah Hull MD Advanced Directives Existing Living Will: Yes Existing Power of Librarian Specialist: Yes Resuscitation Status VTE Prophylaxis Will order VTE Prophylaxis: Yes
[2017-08-05 14:11] VITALS: BP 136/78; PULSE 94; TEMP 38; O2SAT 96
[2017-08-05 15:34] VITALS: BP 112/73; PULSE 79; TEMP 37.1; O2SAT 92
[2017-08-05 16:00] VITALS: O2SAT 93
[2017-08-05] MEDS ORDERED: WARFARIN SOD 5 MG TAB PO SCH (16:00)
[2017-08-05] MEDS: DILTIAZEM HCL 30 MG TAB PO SCH ×2 (16:29→21:17)
--- NOTE | 2017-08-05 16:52 | Cardiology Consultation ---
Cardiology Consultation Date of Service Aug 05, 2017. Cardiology Consultation Indication: Consultation for atrial fibrillation History: This is an 81-year-old male patient who has had chronic atrial fibrillation treated with anticoagulation only. He has had controlled heart rates with no medications. Over the past 24-48 hours he has not been feeling well. He has had some cold-like symptoms and last night took NyQuil to help him sleep. This morning he woke up. He has a baseline tremor which was markedly worse this morning and when he took his pulse he noticed that his heart rate was rapid. The patient came to the emergency department where he was noted to be in atrial fibrillation with RVR. He was started on diltiazem intravenously and his heart rate was brought down very quickly. He is currently asymptomatic. He has no complaints of chest pain or shortness of breath. He denies dizziness or lightheadedness. Allergies: No known medical allergies Reported Home Medications Medications Dose Route/Sig Max Daily Dose Days Date Category Coumadin (Warfarin Sod) 5 Mg Tab 1 Tab PO SUTUTHSA 08/05/17 Reported Coumadin (Warfarin Sod) 5 Mg Tab 0.5 Tab PO MOWEFR 08/05/17 Reported Vitamin D3 (Cholecalciferol) 1,000 Unit Tab 1,000 Inter.unit PO PM 08/05/17 Reported Caltrate 600+D (Calcium Carbonate-Cholecalcife) 1 Tab Tab 1 Tab PO BID 08/05/17 Reported Aspirin Ec (Aspirin) 81 Mg Tab 81 Mg PO PM 08/05/17 Reported Zocor (Simvastatin) 20 Mg Tab 20 Mg PO QPM 08/05/17 Reported Zestril (Lisinopril) 10 Mg Tab 10 Mg PO PM 08/05/17 Reported Past medical history: As outlined above the patient has had chronic atrial fibrillation treated with anticoagulation and no rate control. According to records he may have developed some bradycardia while taking a beta-joselo. He is treated for dyslipidemia and hypertension. Social history: He is and lives with his . He is a non-smoker. Family medical history: Noncontributory General: The patient denies weight change, night sweats, fever, chills. Head: The patient denies headache and prior head trauma. Cardiovascular: The patient denies chest pain or chest discomfort, dyspnea on exertion, palpitations, PND, orthopnea, edema, spontaneous shortness of breath, syncope and near syncope. Pulmonary: The patient denies cough, wheeze, pleurisy, hemoptysis, sputum, and excessive snoring. Gastrointestinal: The patient denies nausea, vomiting, diarrhea, constipation, bloating, hematemesis, hematochezia, and abdominal pain. Skin: The patient denies diaphoresis and rash. Musculoskeletal: The patient denies joint pain, joint swelling, myalgia, back pain, neck pain and prior injuries. Neurological: The patient denies prior stroke and seizures Vital Signs Past 12 Hours Date Time Temp Pulse Resp B/P (MAP) Pulse Ox O2 Delivery O2 Flow Rate FiO2 08/05/17 14:11 38.0 94 16 136/78 (97) 96 Nasal Cannula 2.0 08/05/17 13:37 37.4 81 23 116/62 97 08/05/17 13:25 81 23 97 Nasal Cannula 2.0 08/05/17 13:15 116/62 08/05/17 13:10 Nasal Cannula 08/05/17 13:10 93 22 95 Nasal Cannula 2.0 08/05/17 13:00 114/77 08/05/17 12:56 80 17 114/64 97 Nasal Cannula 2.0 08/05/17 12:55 88 23 89 08/05/17 12:45 115/67 08/05/17 12:41 81 17 114/64 97 Nasal Cannula 2.0 08/05/17 12:40 79 23 92 08/05/17 12:35 96/69 08/05/17 12:33 98 17 97 Nasal Cannula 2.0 08/05/17 12:29 08/05/17 12:27 142/66 08/05/17 12:25 134/85 08/05/17 12:23 140/107 08/05/17 12:20 132/107 08/05/17 12:19 133/82 08/05/17 12:18 87 27 94 Nasal Cannula 2.0 08/05/17 12:17 141/87 08/05/17 12:15 159/81 08/05/17 12:13 142/77 08/05/17 12:11 153/80 08/05/17 12:09 152/81 08/05/17 12:07 149/107 08/05/17 12:05 148/103 08/05/17 12:03 93 22 94 Nasal Cannula 2.0 08/05/17 12:02 138/95 08/05/17 12:01 118/80 08/05/17 11:59 155/90 08/05/17 11:57 94/88 08/05/17 11:54 125/94 08/05/17 11:53 142/89 08/05/17 11:50 129/93 08/05/17 11:48 98 27 132/88 93 Nasal Cannula 2.0 08/05/17 11:47 116/95 08/05/17 11:45 140/82 08/05/17 11:43 127/78 08/05/17 11:41 132/119 08/05/17 11:39 130/99 08/05/17 11:35 149/91 08/05/17 11:33 86 25 148/87 94 Nasal Cannula 2.0 08/05/17 11:28 117/97 08/05/17 11:26 97 22 124/77 94 Nasal Cannula 2.0 08/05/17 11:25 124/77 08/05/17 11:23 118/78 08/05/17 11:21 158/88 08/05/17 11:19 131/80 08/05/17 11:17 136/66 08/05/17 11:15 105 23 138/110 90 Nasal Cannula 2.0 08/05/17 11:02 82 22 153/98 98 Nasal Cannula 2.0 08/05/17 10:42 96 27 130/84 99 Nasal Cannula 2.0 08/05/17 10:35 Nasal Cannula 2.0 08/05/17 10:30 121 34 113/89 98 Room Air 08/05/17 10:27 115 08/05/17 10:23 160/84 08/05/17 10:22 93 29 100 08/05/17 10:20 81 30 135/75 08/05/17 10:18 81 26 145/70 08/05/17 10:17 128/87 08/05/17 10:16 97 18 100 08/05/17 10:15 137/88 08/05/17 10:14 93 15 99 08/05/17 10:13 132/82 08/05/17 10:12 92 23 98 08/05/17 10:11 150/79 08/05/17 10:10 90 21 08/05/17 10:08 89 28 121/91 08/05/17 10:06 97 22 125/78 08/05/17 10:04 96 24 130/85 100 08/05/17 10:03 134/72 08/05/17 10:02 89 20 08/05/17 10:01 149/84 08/05/17 10:00 97 26 08/05/17 09:59 168/95 08/05/17 09:58 95 20 100 08/05/17 09:56 82 26 100 08/05/17 09:55 169/76 08/05/17 09:54 90 27 96 08/05/17 09:52 95 14 135/76 08/05/17 09:50 97 22 121/66 08/05/17 09:49 97 Room Air 08/05/17 09:48 102 22 115/94 08/05/17 09:46 105 28 138/72 08/05/17 09:45 114/78 08/05/17 09:44 106 16 08/05/17 09:42 113 19 08/05/17 09:41 146/85 08/05/17 09:40 122 24 08/05/17 09:38 136 20 08/05/17 09:36 153 33 08/05/17 09:35 149 08/05/17 09:34 146 29 08/05/17 09:32 147 25 08/05/17 09:31 154/89 08/05/17 09:27 151/89 08/05/17 09:12 37.4 81 18 162/102 100 Room Air General Appearance: Alert and Oriented x3. NAD. Head: Normocephalic Atraumatic. Eyes: PERRLA, EOMI, conjunctiva and sclera clear Neck: Supple. No carotid bruits noted. No JVD. No HJD. Respiratory: Breath sounds clear to auscultation bilaterally. No w/r/r. Cardiovascular: Irregular rate and rhythm. S1 and S2 noted. No murmurs, rubs, gallops. PMI non displace. Abdomen: Normal bowel sounds, soft nontender. no abdominal bruits. Extremities: No edema, no clubbing or cyanosis. distal pulses 2/4 bilaterally. Neuro: No focal deficits. Psychiatric: Normal affect. Last 24 Hours Test 08/05/17 09:15 08/05/17 09:36 08/05/17 09:42 Bedside Glucose 76 mg/dl White Blood Count 9.97 K/uL Red Blood Count 4.44 M/uL Hemoglobin 15.6 g/dL Hematocrit 45.6 % Mean Corpuscular Volume 102.7 fL Mean Corpuscular Hemoglobin 35.1 pg Mean Corpuscular Hemoglobin Concent 34.2 g/dl Platelet Count 161 K/uL Mean Platelet Volume 11.0 fL Neutrophils (%) (Auto) 75.8 % Lymphocytes (%) (Auto) 12.5 % Monocytes (%) (Auto) 10.6 % Eosinophils (%) (Auto) 0.7 % Basophils (%) (Auto) 0.2 % Neutrophils # (Auto) 7.55 K/uL Lymphocytes # (Auto) 1.25 K/uL Monocytes # (Auto) 1.06 K/uL Eosinophils # (Auto) 0.07 K/uL Basophils # (Auto) 0.02 K/uL RDW Standard Deviation 54.7 fL RDW Coefficient of Variation 14.7 % Immature Granulocyte % (Auto) 0.2 % Immature Granulocyte # (Auto) 0.02 K/uL Prothrombin Time 20.0 SECONDS Prothromb Time International Ratio 1.9 Activated Partial Thromboplast Time 32.3 SECONDS Partial Thromboplastin Ratio 1.2 Sodium Level 137 mmol/L Potassium Level 4.3 mmol/L Chloride Level 105 mmol/L Carbon Dioxide Level 25 mmol/L Anion Gap 7.0 mmol/L Blood Urea Nitrogen 17 mg/dl Creatinine 1.08 mg/dl Est Creatinine Clear Calc Drug Dose 57.1 ml/min Estimated GFR () 74.2 Estimated GFR (Non- 64.0 BUN/Creatinine Ratio 15.7 Random Glucose 134 mg/dl Calcium Level 8.9 mg/dl Troponin I < 0.015 ng/ml Pro-B-Type Natriuretic Peptide 2348 pg/ml Thyroid Stimulating Hormone (TSH) 1.960 uIu/ml Bedside Troponin I < 0.030 ng/ml Impression/recommendations: This is an 81-year-old male patient with a long- standing history of chronic atrial fibrillation who developed a viral illness last night and took [id number] cold medication. He woke up with tachycardia this morning and presented to the emergency department. His heart rate was quickly controlled with intravenous diltiazem which has since been discontinued and the patient started on oral diltiazem. He has no current complaints. I would keep him on telemetry overnight. We will reassess him tomorrow. I counseled he and his regarding cold preparations especially in light of tachycardia.
[2017-08-05 19:18] VITALS: BP 120/70; PULSE 96; TEMP 39; O2SAT 97
[2017-08-05] MEDS ORDERED: LISINOPRIL 10 MG TAB PO SCH (21:00)
[2017-08-05] MEDS ORDERED: CHOLECALCIFEROL 1000 INTER.UNIT TAB PO SCH (21:00)
[2017-08-05] MEDS ORDERED: SIMVASTATIN 20 MG TAB PO SCH (21:00)
[2017-08-05 21:12] LABS: INFLUENZA B ANTIGEN Neg for Influ B (NEG)
[2017-08-05] MEDS: DOXYCYCLINE HYCLATE 100 MG CAP PO SCH (21:17)
[2017-08-05 21:55] LABS: INFLUENZA A PCR Neg for Influ A (NEG); INFLUENZA B PCR Neg for Influ B (NEG)
[2017-08-05 23:02] VITALS: BP_SYST 108; BP_SYST 119; BP_DIAS 73; BP_DIAS 75; PULSE 68; PULSE 69; TEMP 36.6; TEMP 36.8; O2SAT 94; O2SAT 97
[2017-08-06 03:15] VITALS: BP 123/78; PULSE 83; TEMP 36.8; O2SAT 99
[2017-08-06 06:18] LABS: HEMATOCRIT 40.9 % (42-52); HEMOGLOBIN 13.9 g/dL (14.0-18.0); MEAN CELL VOLUME 101.7 fL (80-100); MEAN CORPUSCULAR HEMOGLOBIN 34.6 pg (25-34); MEAN PLATELET VOLUME 10.4 fL (7.4-10.4); PLATELET COUNT 129 K/uL (130-400); RED CELL DISTRIBUTION WIDTH CV 14.7 % (11.5-14.5); RED CELL DISTRIBUTION WIDTH SD 54.2 fL (36.4-46.3); WHITE BLOOD COUNT 8.11 K/uL (4.8-10.8)
[2017-08-06 06:33] LABS: INR 1.9 (0.9-1.1)
[2017-08-06 06:57] LABS: CALCIUM 8.2 mg/dl (8.5-10.1); CREATININE 0.72 mg/dl (0.60-1.40); POTASSIUM 3.9 mmol/L (3.5-5.1)
[2017-08-06 08:11] VITALS: BP 115/76; PULSE 88; TEMP 37.2; O2SAT 95
[2017-08-06] MEDS: DILTIAZEM HCL 30 MG TAB PO SCH (09:00)
[2017-08-06] MEDS: DOXYCYCLINE HYCLATE 100 MG CAP PO SCH (09:00)
[2017-08-06 12:04] VITALS: BP 98/60; PULSE 72; TEMP 37; O2SAT 96
--- NOTE | 2017-08-06 12:29 | Cardiology Follow-Up ---
Subjective Subjective Date of Service: Aug 06, 2017. Pt evaluation today including: conversation w/ patient, conversation w/ family , physical exam, chart review, lab review, review of studies, review of inpatient medication list Additional Details: The patient had an uneventful night. He is in a controlled atrial fibrillation with appropriate heart rates after review of the telemetry by myself. He has no new cardiac complaints today. Problem List Medical Problems: (1) Atrial fibrillation with RVR Status: Acute Objective Vital Signs Last Vital Signs Documentation Date Time Temp Pulse Resp B/P (MAP) Pulse Ox O2 Delivery O2 Flow Rate FiO2 08/06/17 12:04 37.0 72 16 98/60 (73) 96 Room Air 08/06/17 04:00 1.0 Physical Exam: General Appearance: no apparent distress ENT: normal ENT inspection, hearing grossly normal Neck: supple, no adenopathy, thyroid normal, no JVD Respiratory/Chest: lungs clear, normal breath sounds Cardiovascular: no edema, no JVD, no murmur, + irregularly irregular Abdomen: normal bowel sounds, non tender, soft, no organomegaly, no pulsatile mass Extremities: non-tender, normal inspection, no pedal edema Neurologic/Psychiatric: balance bridge inspector II-XII nml as tested, no motor/sensory deficits, alert, normal mood/affect Skin: normal color, warm/dry, no rash Lymphatic: no adenopathy Assessment and Plan Impression: 1. Chronic atrial fibrillation 2. Atrial fibrillation with RVR Recommendations: Believe the patient may be discharged home. I would switch him to the long- acting diltiazem at 180 mg daily. I will make arrangements to for him to have early follow-up with his normal rougher helper Dr. Burch. Medications: Current Inpatient Medications Medications (Trade) Dose Ordered Sig/Mary Route Start Time Stop Time Status Last Admin Dose Admin Diltiazem HCl 125 mg/Dextrose 125 ml @ 0 mls/hr Q0M PRN IV 08/05/17 10:00 09/04/17 09:59 Acetaminophen (Tylenol Tab) 650 mg Q4H PRN PO 08/05/17 12:45 09/04/17 12:44 08/05/17 19:26 650 MG Al Hydrox/Mg Hydrox/Simethicone (Maalox Max Susp) 15 ml Q4H PRN PO 08/05/17 12:45 09/04/17 12:44 Diltiazem HCl (Cardizem Tab) 30 mg QID PO 08/05/17 17:00 09/04/17 16:59 08/06/17 09:00 30 MG Aspirin (Ecotrin Tab) 81 mg PM PO 08/06/17 21:00 09/05/17 20:59 Cholecalciferol (Vitamin D Tab) 1,000 inter.unit PM PO 08/05/17 21:00 09/04/17 20:59 08/05/17 21:17 1,000 INTER.UNIT Lisinopril (Zestril Tab) 10 mg PM PO 08/05/17 21:00 09/04/17 20:59 08/05/17 21:16 10 MG Simvastatin (Zocor Tab) 20 mg QPM PO 08/05/17 21:00 09/04/17 20:59 08/05/17 21:16 20 MG Warfarin Sodium (Coumadin Tab) 2.5 mg MoWeFr@1600 PO 08/06/17 16:00 09/05/17 15:59 Warfarin Sodium (Coumadin Tab) 5 mg SuTuThSa@1600 PO 08/05/17 16:00 09/04/17 15:59 08/05/17 16:29 5 MG Miscellaneous (Iv Fluids Completed) 1 ea PRN PRN N/A 08/05/17 13:45 08/05/18 13:44 Doxycycline Hyclate (Vibramycin Cap) 100 mg BID PO 08/05/17 21:00 08/12/17 20:59 08/06/17 09:00 100 MG Lab Results: Last 24 Hours Test 08/05/17 20:00 08/05/17 22:20 08/06/17 06:10 Influenza Type A (RT-PCR) Neg for Influ A Influenza Type A Antigen Neg for Influ A Influenza Type B Antigen Neg for Influ B Influenza Type B (RT-PCR) Neg for Influ B Urine Color YELLOW Urine Appearance CLEAR Urine pH 7.0 Urine Specific Counselor 1.006 Urine Protein NEG Urine Glucose (UA) NEG Urine Ketones NEG Urine Occult Blood NEG Urine Nitrite NEG Urine Bilirubin NEG Urine Urobilinogen NEG Urine Leukocyte Esterase NEG White Blood Count 8.11 K/uL Red Blood Count 4.02 M/uL Hemoglobin 13.9 g/dL Hematocrit 40.9 % Mean Corpuscular Volume 101.7 fL Mean Corpuscular Hemoglobin 34.6 pg Mean Corpuscular Hemoglobin Concent 34.0 g/dl RDW Standard Deviation 54.2 fL RDW Coefficient of Variation 14.7 % Platelet Count 129 K/uL Mean Platelet Volume 10.4 fL Prothrombin Time 19.8 SECONDS Prothromb Time International Ratio 1.9 Sodium Level 137 mmol/L Potassium Level 3.9 mmol/L Chloride Level 107 mmol/L Carbon Dioxide Level 24 mmol/L Anion Gap 6.0 mmol/L Blood Urea Nitrogen 16 mg/dl Creatinine 0.72 mg/dl Est Creatinine Clear Calc Drug Dose 85.7 ml/min Estimated GFR () 101.4 Estimated GFR (Non- 87.5 BUN/Creatinine Ratio 22.5 Random Glucose 90 mg/dl Calcium Level 8.2 mg/dl Procalcitonin 0.06 ng/ml
--- NOTE | 2017-08-06 14:48 | Progress Note ---
Medicine Progress Note Date & Time of Visit: Aug 06, 2017 at 14:44. Subjective seen resting in bed comfortable appears brighter, more energetic states he feels better today has less cough, productive of white/clear sputum no dyspnea no chest pain, palpitations, dizziness ambulates with no problems states he is ready and would like to be discharged today Objective Last 8 Hrs Date Time Temp Pulse Resp B/P (MAP) Pulse Ox O2 Delivery O2 Flow Rate FiO2 08/06/17 12:04 37.0 72 16 98/60 (73) 96 Room Air 08/06/17 08:11 37.2 88 16 115/76 (89) 95 Room Air Physical Exam: General- oriented x 3, not in distress, speaks in sentences with no effort Head- atraumatic Eyes- anicteric ENT- oropharynx clear Neck- supple, no JVD Lungs- mild rales on the left base, clear on the right, no wheezing Heart- regular rhythm; no murmur, normal rate Abdomen- normal bowel sounds, soft, nontender Extremities- no pretibial edema, no calf tenderness; peripheral pulses intact Neuro- alert, oriented x 3; no gross focal deficits Skin- warm & dry Laboratory Results: Last 24 Hours Test 08/05/17 20:00 08/05/17 22:20 08/06/17 06:10 Influenza Type A (RT-PCR) Neg for Influ A Influenza Type A Antigen Neg for Influ A Influenza Type B Antigen Neg for Influ B Influenza Type B (RT-PCR) Neg for Influ B Urine Color YELLOW Urine Appearance CLEAR Urine pH 7.0 Urine Specific [place] 1.006 Urine Protein NEG Urine Glucose (UA) NEG Urine Ketones NEG Urine Occult Blood NEG Urine Nitrite NEG Urine Bilirubin NEG Urine Urobilinogen NEG Urine Leukocyte Esterase NEG White Blood Count 8.11 K/uL Red Blood Count 4.02 M/uL Hemoglobin 13.9 g/dL Hematocrit 40.9 % Mean Corpuscular Volume 101.7 fL Mean Corpuscular Hemoglobin 34.6 pg Mean Corpuscular Hemoglobin Concent 34.0 g/dl RDW Standard Deviation 54.2 fL RDW Coefficient of Variation 14.7 % Platelet Count 129 K/uL Mean Platelet Volume 10.4 fL Prothrombin Time 19.8 SECONDS Prothromb Time International Ratio 1.9 Sodium Level 137 mmol/L Potassium Level 3.9 mmol/L Chloride Level 107 mmol/L Carbon Dioxide Level 24 mmol/L Anion Gap 6.0 mmol/L Blood Urea Nitrogen 16 mg/dl Creatinine 0.72 mg/dl Est Creatinine Clear Calc Drug Dose 85.7 ml/min Estimated GFR () 101.4 Estimated GFR (Non- 87.5 BUN/Creatinine Ratio 22.5 Random Glucose 90 mg/dl Calcium Level 8.2 mg/dl Procalcitonin 0.06 ng/ml Date/Time Source Procedure Growth Status 08/05/17 20:53 Blood Blood Culture Pending Received 08/05/17 20:42 Blood Blood Culture Pending Received Assessment & Plan This is a 81yo M with a PMH of persistent A Fib (on coumadin), HTN, HLD and other medical problems listed below who presents with shakiness this AM. A Fib with RVR: -H/o persistent A Fib -Likely caused by cold medication - Nyquil -Electrolytes, TSH wnl -Initially with HR in 150s -Cardizem bolus and drip initiated in ED -Able to transition to PO diltiazem in ED -HR now in 80-90s evaluated by Dr. Amador recommend Diltiazem 180mg po daily outpatient ff up with Cardiology, clinic will call patient INR 1.9 ordered coumadin 4mg po resume usual regimen ff up with [facility] next week Upper Respiratory Infection- possible Acute Bronchitis Viral vs. Bacterial admitted with fever up to 39C CXR: 1. Cardiomegaly 2. Subtle elevation of the right lung intersitial markings. Asymmetric edema vs. an interstitial inflammatory process blood cultures pending UA negative given empiric Doxycycline 100mg po BID, fever resolved will ff up blood cultures continue Doxycycline 100mg BID x 6 more days to complete 7 days treatment ff up chest xray in 2 weeks to confirm resolution HTN: -Normotensive -Cont home dose lisinopril HLD: -Cont statin CAD: -Non-obstructive -No chest pain currently -Cont baby aspirin, statin Dispo: d/c home ff up with PCP in 3-5 days ff up with Cardiology as scheduled ff up with [facility] next week Current Inpatient Medications: Current Inpatient Medications Medications (Trade) Dose Ordered Sig/Mary Route Start Time Stop Time Status Last Admin Dose Admin Diltiazem HCl 125 mg/Dextrose 125 ml @ 0 mls/hr Q0M PRN IV 08/05/17 10:00 09/04/17 09:59 Acetaminophen (Tylenol Tab) 650 mg Q4H PRN PO 08/05/17 12:45 09/04/17 12:44 08/05/17 19:26 650 MG Al Hydrox/Mg Hydrox/Simethicone (Maalox Max Susp) 15 ml Q4H PRN PO 08/05/17 12:45 09/04/17 12:44 Aspirin (Ecotrin Tab) 81 mg PM PO 08/06/17 21:00 09/05/17 20:59 Cholecalciferol (Vitamin D Tab) 1,000 inter.unit PM PO 08/05/17 21:00 09/04/17 20:59 08/05/17 21:17 1,000 INTER.UNIT Lisinopril (Zestril Tab) 10 mg PM PO 08/05/17 21:00 09/04/17 20:59 08/05/17 21:16 10 MG Simvastatin (Zocor Tab) 20 mg QPM PO 08/05/17 21:00 09/04/17 20:59 08/05/17 21:16 20 MG Warfarin Sodium (Coumadin Tab) 2.5 mg MoWeFr@1600 PO 08/06/17 16:00 09/05/17 15:59 Warfarin Sodium (Coumadin Tab) 5 mg SuTuThSa@1600 PO 08/05/17 16:00 09/04/17 15:59 08/05/17 16:29 5 MG Miscellaneous (Iv Fluids Completed) 1 ea PRN PRN N/A 08/05/17 13:45 08/05/18 13:44 Doxycycline Hyclate (Vibramycin Cap) 100 mg BID PO 08/05/17 21:00 08/12/17 20:59 08/06/17 09:00 100 MG Diltiazem HCl (TIAzac CAP) 180 mg QAM PO 08/07/17 09:00 09/06/17 08:59
[2017-08-06] MEDS ORDERED: DXY100 PO (14:56)
[2017-08-06] MEDS ORDERED: TZCSR180 PO (14:56)
--- NOTE | 2017-08-06 15:02 | Discharge Instructions ---
Discharge Instructions Date of Service Aug 06, 2017. Admission Reason for Admission: Atrial Fibrillation With Rvr Discharge Discharge Diagnosis / Problem: ATRIAL FIBRILLATION WITH RAPID VENTRICULAR RESPONSE Discharge Goals Goal(s): Diagnostic testing, Therapeutic intervention Activity Recommendations Activity Limitations: as noted below (NO HEAVY EXERTION UNTIL RE-EVALUATED BY PRIMARY CARE PHYSICIAN) Lifting Limitations: until after follow-up appointment Exercise/Sports Limitations: until after follow-up appointment Driving or Machine Use: NO DRIVING UNTIL RE-EVALUATED BY PRIMARY CARE PHYSICIAN . Instructions / Follow-Up Instructions / Follow-Up PLEASE REVIEW YOUR NEW MEDICATION LIST AND FOLLOW INSTRUCTIONS CAREFULLY. CALL PRIMARY CARE PHYSICIAN OR RETURN TO ER IMMEDIATELY IF WITH RECURRENCE OF SYMPTOMS, FEVER, CHILLS, INCREASING COUGH/PHLEGM, SHORTNESS OF BREATH, DIARRHEA. FOLLOW UP WITH DR. AMEZCUA ON SATURDAY AUGUST 12, 2017 AT 11:00AM. FOLLOW UP WITH SAFETY INVESTIGATOR SCHEDULED. THE CLINIC WILL CALL YOU FOR THE APPOINTMENT. Current Hospital Diet Patient's current hospital diet: AHA Diet (Heart Healthy) Discharge Diet Recommended Diet: AHA Diet (Heart Healthy) Procedures Procedures Performed: CHEST XRAY, HEAD CT SCAN Pending Studies Studies pending at discharge: no Medical Emergencies . Who to Call and When: Medical Emergencies: If at any time you feel your situation is an emergency, please call 911 immediately. . Non-Emergent Contact Non-Emergency issues call your: Primary Care Provider, [employer] Set Up Operator Call Non-Emergent contact if: you have a fever, you have any medication questions . . "Provider Documentation" section prepared by Hamzah Hull. .
--- NOTE | 2017-08-06 15:06 | Discharge Summary ---
Discharge Summary Date of Service Aug 06, 2017. Discharge Summary Admission Date: Aug 05, 2017 at 12:45 Discharge Date: Aug 06, 2017 Discharge Disposition: Home Principal Diagnosis: ATRIAL FIBRILLATION with RVR Secondary Diagnoses/Problems: PLEASE REFER TO HOSPITAL COURSE BELOW. Procedures: CHEST ONE VIEW PORTABLE CLINICAL HISTORY: Atypical chest pain COMPARISON STUDY: None FINDINGS: The heart is enlarged. There is no lobar consolidation. There is slight elevation of the right lung interstitial markings. This could represent asymmetric edema. An interstitial inflammatory process could appear similar. A lower right paraspinal opacity, likely represents the left atrium.[ No pleural effusions are visualized IMPRESSION: 1. Cardiomegaly 2. Subtle elevation of the right lung intersitial markings. Asymmetric edema vs. an interstitial inflammatory process Electronically signed by: Danilo Chisholm M.D. 08/05/2017 10:[address]AST CT DOSE: 614.27 mGy.cm HISTORY: Uncontrolled shaking this morning TECHNIQUE: Multiaxial CT images of the head were performed without the use of intravenous contrast. Automated exposure control was utilized for this study. A dose lowering technique was utilized adhering to the principles of ALARA. Comparison: None. Findings: The paranasal sinuses and mastoid air cells are clear. The calvarium and skull base are intact. There is no mass, hematoma, midline shift, acute infarct. White matter hypodensity is nonspecific but suggestive of microvascular ischemic change. The ventricles and sulci demonstrate mild age-related involutional changes. Impression: No acute intracranial abnormality. Electronically signed by: Abner Adhikari M.D. 08/05/2017 11:07 AM Consultations: SET UP MACHINIST DR. AMADOR Pending Studies/Follow-Up: PLEASE REFER TO HOSPITAL COURSE BELOW. Medication Reconciliation New Medications: Diltiazem HCl (Tiazac) 180 Mg Capcr 180 MG PO QAM for 30 Days, #30 TAB 2 Refills Doxycycline Hyclate (Doxycycline Hyclate) 100 Mg Cap 100 MG PO BID for 6 Days, #12 CAP 0 Refills Continued Medications: Aspirin (Aspirin Ec) 81 Mg Tab 81 MG PO PM Calcium Carbonate-Cholecalcife (Caltrate 600+D) 1 Tab Tab 1 TAB PO BID Cholecalciferol (Vitamin D3) 1,000 Unit Tab 1000 INTER.UNIT PO PM, TAB 3 Refills Lisinopril (Zestril) 10 Mg Tab 10 MG PO PM, TAB Simvastatin (Zocor) 20 Mg Tab 20 MG PO QPM, TAB Warfarin Sod (Coumadin) 5 Mg Tab 0.5 TAB PO MoWeFr Warfarin Sod (Coumadin) 5 Mg Tab 1 TAB PO SuTuThSa Admission Information HPI (per Admitting provider): This is a 81yo M with a PMH of persistent A Fib (on coumadin), HTN, HLD and other medical problems listed below who presents with shakiness this AM. Patient started to develop nasal congestion yesterday and took NyQuil before bed. In addition to shakiness today, patient notes that his heart was beating faster than normal. Came into the ED for further evaluation. Denies fever, chills, lightheadedness, syncope, visual changes, sore throat, cough, chest pain , SOB, abd pain, nausea, vomiting, bowel/bladder changes or LE swelling. The patient has a history of A fib and he is currently on Coumadin. Last INR was done a month ago and was 2.3. Has not been placed on a beta joselo due to past episodes of symptomatic bradycardia, per chart review. Was seen by Dr. Burch in cardiology clinic yesterday for some mild chest pain that was determined to be MSK in origin. During visit, patient had an echo performed with EF of 50-54%, moderately increased LV wall thickness and septal motion abnormality consistent with intraventricular conduction delay. Patient does not drink alcohol regularly and his last drink was 2 weeks ago. Denies any dietary changes recently or diarrhea. Has h/o an aortic aneurysm repair in 2012. Physical Exam (per Admitting): General Appearance: WD/WN, no apparent distress Head: normocephalic, atraumatic Eyes: normal inspection, PERRL, sclerae normal ENT: normal ENT inspection, hearing grossly normal, pharynx normal Neck: supple, thyroid normal, trachea midline Respiratory/Chest: chest non-tender, lungs clear, normal breath sounds, no respiratory distress, no accessory muscle use Cardiovascular: no murmur, normal peripheral pulses, + tachycardia, + irregularly irregular Abdomen/GI: non tender, soft, no organomegaly Back: normal inspection Extremities/Musculoskelatal: normal inspection, no calf tenderness, no pedal edema Neurologic/Psych: no motor/sensory deficits, alert, normal mood/affect, oriented x 3 Skin: normal color, warm/dry Hospital Course This is a 81yo M with a PMH of persistent A Fib (on coumadin), HTN, HLD and other medical problems listed below who presents with shakiness this AM. A Fib with RVR: -H/o persistent A Fib -Likely caused by cold medication - Nyquil -Electrolytes, TSH wnl -Initially with HR in 150s -Cardizem bolus and drip initiated in ED -Able to transition to PO diltiazem in ED -HR improved to 80-90s evaluated by Dr. Amador recommend Diltiazem 180mg po daily outpatient ff up with Cardiology, clinic will call patient INR 1.9 ordered coumadin 4mg po resume usual regimen ff up with [facility] next week Upper Respiratory Infection- possible Acute Bronchitis Viral vs. Bacterial admitted with fever up to 39C, chills CXR: 1. Cardiomegaly 2. Subtle elevation of the right lung intersitial markings. Asymmetric edema vs. an interstitial inflammatory process blood cultures pending UA negative given empiric Doxycycline 100mg po BID, fever resolved will ff up blood cultures continue Doxycycline 100mg BID x 6 more days to complete 7 days treatment ff up chest xray in 2 weeks to confirm resolution HTN: -Normotensive -Cont home dose lisinopril HLD: -Cont statin CAD: -Non-obstructive -No chest pain currently -Cont baby aspirin, statin Dispo: d/c home ff up with PCP in 3-5 days ff up with Cardiology as scheduled ff up with [facility] next week Total time spent on discharge = 30 minutes This includes examination of the patient, discharge planning, medication reconciliation, and communication with other providers. Discharge Instructions Discharge Instructions Date of Service Aug 06, 2017. Admission Reason for Admission: Atrial Fibrillation With Rvr Discharge Discharge Diagnosis / Problem: ATRIAL FIBRILLATION WITH RAPID VENTRICULAR RESPONSE Discharge Goals Goal(s): Diagnostic testing, Therapeutic intervention Activity Recommendations Activity Limitations: as noted below (NO HEAVY EXERTION UNTIL RE-EVALUATED BY PRIMARY CARE PHYSICIAN) Lifting Limitations: until after follow-up appointment Exercise/Sports Limitations: until after follow-up appointment Driving or Machine Use: NO DRIVING UNTIL RE-EVALUATED BY PRIMARY CARE PHYSICIAN . Instructions / Follow-Up Instructions / Follow-Up PLEASE REVIEW YOUR NEW MEDICATION LIST AND FOLLOW INSTRUCTIONS CAREFULLY. CALL PRIMARY CARE PHYSICIAN OR RETURN TO ER IMMEDIATELY IF WITH RECURRENCE OF SYMPTOMS, FEVER, CHILLS, INCREASING COUGH/PHLEGM, SHORTNESS OF BREATH, DIARRHEA. FOLLOW UP WITH DR. AMEZCUA ON SATURDAY AUGUST 12, 2017 AT 11:00AM. FOLLOW UP WITH SET UP MACHINIST SCHEDULED. THE CLINIC WILL CALL YOU FOR THE APPOINTMENT. Current Hospital Diet Patient's current hospital diet: AHA Diet (Heart Healthy) Discharge Diet Recommended Diet: AHA Diet (Heart Healthy) Procedures Procedures Performed: CHEST XRAY, HEAD CT SCAN Pending Studies Studies pending at discharge: no Medical Emergencies . Who to Call and When: Medical Emergencies: If at any time you feel your situation is an emergency, please call 911 immediately. . Non-Emergent Contact Non-Emergency issues call your: Primary Care Provider, [employer] Call Non-Emergent contact if: you have a fever, you have any medication questions . . "Provider Documentation" section prepared by Hamzah Hull. .
[2017-08-06 15:30] VITALS: BP 98/60; PULSE 72; TEMP 37; O2SAT 96
[2017-08-06] MEDS ORDERED: WARFARIN SOD 2.5 MG TAB PO SCH (16:00)
[2017-08-06] MEDS ORDERED: WARFARIN SOD 4 MG TAB PO SCH (16:00)
[2017-08-06] MEDS ORDERED: ASPIRIN 81 MG ECTAB PO SCH (21:00)
[2017-08-07] MEDS ORDERED: DILTIAZEM HCL (TIAzac) 180 MG CAPCR PO SCH (09:00)
== END 2017-08-06 16:31 | disposition home or self-care (01) ==
LOC: C.EDB 09:09 → C.2T 12:45 → ENRESERV 13:15 → CANBEDREQ 13:47 → C.2T 19:45
PROVIDERS: ADMIT Internal Medicine; ATTEND Internal Medicine
DX: I48.2 Chronic atrial fibrillation (principal); J06.9 Acute upper respiratory infection, unspecified; E78.5 Hyperlipidemia, unspecified; I10 Essential (primary) hypertension; I73.9 Peripheral vascular disease, unspecified; I25.10 Atherosclerotic heart disease of native coronary artery without angina pectoris; E21.3 Hyperparathyroidism, unspecified; I42.9 Cardiomyopathy, unspecified; Z85.51 Personal history of malignant neoplasm of bladder; Z79.01 Long term (current) use of anticoagulants; Z87.891 Personal history of nicotine dependence; Z79.82 Long term (current) use of aspirin; Z79.899 Other long term (current) drug therapy

== ENCOUNTER → 2017-09-09 | Outpatient (CLI) | payer OTHER, BC ==
[~2017-09-09] MED LIST: ASPI81TA28 PO; CALC-354 PO; CHOL1000 PO; CMD5 PO; DXY100 PO; LISI-461 PO; SIMV20TA2 PO; TZCSR180 PO
[2017-09-09 10:08] LABS: INR 2.8 (0.9-1.1)
== END | disposition home or self-care (01) ==
LOC: C.LABVPSUW 09:21
PROVIDERS: ATTEND Pharmacist Pharmacotherapy
DX: I48.91 Unspecified atrial fibrillation (principal); Z79.01 Long term (current) use of anticoagulants

== ENCOUNTER → 2017-10-07 | Outpatient (CLI) | payer OTHER, BC | END | disposition home or self-care (01) | LOC: C.LABVPSUW 09:48 | PROVIDERS: ATTEND Pharmacist Pharmacotherapy | DX: Z51.81 Encounter for therapeutic drug level monitoring (principal); I48.91 Unspecified atrial fibrillation; Z79.01 Long term (current) use of anticoagulants ==

== ENCOUNTER → 2018-01-04 | Outpatient (CLI) | payer OTHER, BC ==
[2018-01-04 11:08] LABS: INR 1.9 (0.9-1.1)
--- NOTE | 2018-01-12 12:14 | CODING QUERY NO DIAGNOSIS ---
Valid Physician Order Needed A valid physician order must be submitted in order to properly bill for the service(s) provided, including date of service(s), valid diagnosis, and physician signature. If these tests are done on a recurring basis the original physician order must be submitted in order to code and bill for the service(s) provided. Please fax us the original, signed physician order so that we may expedite billing to [phone] DOS 01/04/18 (Attached order is . Please provide updated order) * Prothrombin Time Thank you Vianey Muñiz [facility] Information Management
== END | disposition home or self-care (01) ==
LOC: C.LABVPSUW 09:17
PROVIDERS: ATTEND Pharmacist Pharmacotherapy
DX: Z01.89 Encounter for other specified special examinations (principal)

== ENCOUNTER 2020-07-09 16:39 | Inpatient (IN) ==
[2020-07-09 17:03] LABS: Basophils # (auto) 0.01 K/uL (0-0.2); Basophils % (auto) 0.2 %; Hematocrit (blood only) 42.4 % (42-52); Hemoglobin 14.3 g/dL (14.0-18.0); Immature Granulocytes # (auto) 0.01 K/uL (0.00-0.02); Immature Granulocytes % (auto) 0.2 %; Lymphocytes # (auto) 1.33 K/uL (1.2-3.4); Lymphocytes % (auto) 24.7 %; Mean Corpuscular Hemoglobin 34.5 pg (25-34); Mean Corpuscular Hgb Conc 33.7 g/dL (32-36); Mean Corpuscular Volume 102.4 fL (80-100); Monocytes # (auto) 0.86 K/uL (0.11-0.59); Neutrophils # (auto) 3.17 K/uL (1.4-6.5); Neutrophils % (auto) 58.9 %; Platelet Count 129 K/uL (130-400); RDW Coefficient of Variation 14.4 % (11.5-14.5); RDW Standard Deviation 53.9 fL (36.4-46.3); Red Blood Count 4.14 M/uL (4.7-6.1); White Blood Count 5.38 K/uL (4.8-10.8)
--- NOTE | 2020-07-09 17:04 | Emergency Department Note ---
Impression & Plan COVID-19, Syncope, Hypotension ED Provider Note NAME: RONNY STAFFORD JR AGE: 84 SEX: M : 1935 ARRIVES VIA: Ambulance INFORMANT: Patient, ED PROVIDER(S): Haroon Sherman DO CHIEF COMPLAINT: Syncope, Covid positive HPI: Patient is an 84-year-old male who lives independently with his who presents to the ER for symptoms which started on Wednesday. He started feeling weak. He was seen and evaluated in the ER. He tested positive for coronavirus. Cough started on Wednesday. He denies any chest pain. He admits to some mild shortness of breath today. He was laying on the couch and went to get up from the couch. The notes that his eyes rolled back in the head and he fell backwards onto the couch. He was passed out for about 10 to 15 seconds. There was no shaking. He has never had this before. notes that he has not been diagnosed with dementia but he is a little forgetful. He denies any headache or change in vision. No chest pain, shortness of breath, nausea, vomiting, or diarrhea. No dysuria, urgency or frequency currently. He denies any focal weakness or numbness in his arms or legs. Normally does not wear oxygen. ROS: See above HPI for pertinent positives & negatives. A total of 10 systems reviewed and were otherwise negative. PAST MEDICAL HISTORY:See Below PAST SURGICAL HISTORY:See Below FAMILY HISTORY:See Below SOCIAL HISTORY:See Below HOME MEDICATIONS:See Below ALLERGIES:See Below VITALS:See Below PHYSICAL EXAMINATION: GENERAL: Sitting up in bed, alert, well appearing, Disheveled, no acute distress EYE EXAM: normal conjunctiva. PERRL and EOM's intact. OROPHARYNX: no exudate, no erythema, lips, buccal mucosa, and tongue normal and mucous membranes are moist NECK: supple, no nuchal rigidity, no adenopathy, non-tender LUNGS: Diminished bilaterally. Normal chest wall mechanics HEART: no murmurs, S1 normal and S2 normal ABDOMEN: abdomen soft, non-tender, normo-active bowel sounds, no masses, no rebound or guarding. BACK: Back is symmetrical on inspection and there is no deformity, no midline tenderness, no CVA tenderness. SKIN: no rashes and no bruising UPPER EXTREMITIES: upper extremities are grossly normal. LOWER EXTREMITIES: No pitting edema. NEURO EXAM: Awake alert oriented to person Place but not year, cranial nerves II-XII intact, normal speech, no weakness of arms, no weakness of legs. No drift. Pouvhk-ti-[id number] intact. MEDICAL DECISION MAKING: Patient is an 84-year-old male who presents to the ER for syncopal episode. Past medical history includes nonischemic cardiomyopathy, A. fib with RVR, hypertension hyperlipidemia PAD and Covid. He was diagnosed with Covid about 3 days ago. He has been taking his Coumadin. On evaluation he is mildly confused after discussion with his via telephone she notes that this is fairly typical for him. Labs showed no significant leukocytosis or anemia. INR At 3.0. D-dimer was elevated at 1400. Consider PE but with a therapeutic INR favor this is extremely unlikely. BMP with slightly elevated chloride at 108. LFTs bilirubin was unremarkable. Troponin was detectable but not positive. Lipase was unremarkable. Chest x-ray with some congestion which I favor secondary to the Covid Infection. Upon presentation he was found to be hypoxic at 88% on room air. He was placed on [address] of the head was unremarkable. Patient was updated bedside. He remained on nasal cannula throughout his entire stay. He was discussed with the hospitalist for further evaluation due to the syncope and hypoxia requiring 2 L nasal cannula. With the mild hypotension he was given a bolus of IV normal saline. Triage Nursing notes reviewed. Limited review of prior medical records performed Vital Signs: reviewed and remarkable for no significant abnormalities Differential diagnosis: Differential diagnoses includes but is not limited to toxic, metabolic, infectious, traumatic, cardiac, neurologic, hematologic, psychiatric and inflammatory etiologies. ER treatment provided: See below Diagnostics interpreted by me: ECG: A. fib rate 84 PVCs Left axis QTC 472 Cardiac Monitoring: An order was placed for continuous cardiac monitoring. The monitor shows a rate of 75 with A. fib rhythm. Laboratory studies: As stated above and show below. Imaging studies: CT of the head shows no acute pathology Portable AP upright 1 view of the chest shows vascular congestion Consultation(s): Discussed with the hospitalist for further evaluation Procedures: none Critical Care: I have personally spent 32 minutes of critical care time in the direct management of this patient. This includes bedside care, interpretation of diagnostic studies, and testing, discussion with consultants, patient, and family members, and other required patient management activities. This 32 minutes is in excess of all separately billable procedures. Past Med/Surg History Social History Smoking Status: Never smoker Preferred Language: Qatari Feels Safe at Home: Yes Allergies Allergies Allergy/AdvReac Type Severity Reaction Status Date / Time No Known Allergies Allergy Verified 07/09/20 18:15 Home Meds Home Medications Medication Instructions Recorded Confirmed ammonium lactate 1 applic TOPICAL DIRECTED 07/06/20 07/09/20 clotrimazole 1 applic TOPICAL DIRECTED 07/06/20 07/09/20 diltiazem HCl [Tiadylt ER] 180 mg PO DAILY 07/06/20 07/09/20 lisinopril 10 mg PO DAILY 07/06/20 07/09/20 simvastatin 20 mg PO DAILY 07/06/20 07/09/20 warfarin [Jantoven] 5 mg PO DIRECTED 07/06/20 07/09/20 aspirin [Aspirin Low Dose] 81 mg PO DAILY 07/09/20 07/09/20 calcium 1,000 mg PO DAILY 07/09/20 07/09/20 cholecalciferol (vitamin D3) 50 mcg PO BID 07/09/20 07/09/20 [Vitamin D3] vitamins A,C,J-sjzk-tmgzoq 1 tab PO BID 07/09/20 07/09/20 [PreserVision AREDS] Previous Rx's Medication Instructions Recorded cephalexin 500 mg PO Q6H 5 Days #20 cap 07/06/20 Results & Data (ED) Vital Signs Vital Signs - 24 hr 07/09/20 16:47 07/09/20 16:49 07/09/20 16:57 Temperature 36.5 C Temperature Source Oral Pulse Rate 84 77 82 Pulse Rate [Apical] Pulse Rate from SpO2 Sensor 94 H Pulse Rhythm Regular Pulse Strength Normal Respiratory Rate 23 23 16 Respiratory Effort / Characteristics Non-Labored Respiratory Depth Normal Respiratory Pattern Regular Blood Pressure 91/63 L 91/63 L Blood Pressure [Left Arm] Blood Pressure Mean 72 72 Blood Pressure Mean [Left Arm] Blood Pressure Position Sitting Pulse Oximetry 88 L Oxygen Delivery Method Room Air Sepsis Recent Fever Within 48 Hours No Sepsis New/Unexplained Change in Mental Status N/A Sepsis Action Taken by Nursing No Action Required 07/09/20 17:00 07/09/20 17:01 07/09/20 17:16 Temperature Temperature Source Pulse Rate 78 77 76 Pulse Rate [Apical] Pulse Rate from SpO2 Sensor 85 80 Pulse Rhythm Pulse Strength Respiratory Rate 27 H 22 19 Respiratory Effort / Characteristics Respiratory Depth Respiratory Pattern Blood Pressure 121/74 116/60 Blood Pressure [Left Arm] Blood Pressure Mean 89 78 Blood Pressure Mean [Left Arm] Blood Pressure Position Pulse Oximetry 96 Oxygen Delivery Method Sepsis Recent Fever Within 48 Hours Sepsis New/Unexplained Change in Mental Status Sepsis Action Taken by Nursing 07/09/20 17:30 07/09/20 17:31 07/09/20 17:36 Temperature Temperature Source Pulse Rate 79 75 Pulse Rate [Apical] 76 Pulse Rate from SpO2 Sensor Pulse Rhythm Pulse Strength Respiratory Rate 26 H 23 18 Respiratory Effort / Characteristics Respiratory Depth Respiratory Pattern Blood Pressure 106/66 Blood Pressure [Left Arm] 106/66 Blood Pressure Mean 79 Blood Pressure Mean [Left Arm] 79 Blood Pressure Position Pulse Oximetry Oxygen Delivery Method Sepsis Recent Fever Within 48 Hours Sepsis New/Unexplained Change in Mental Status Sepsis Action Taken by Nursing 07/09/20 18:00 07/09/20 18:01 Temperature Temperature Source Pulse Rate 85 73 Pulse Rate [Apical] Pulse Rate from SpO2 Sensor Pulse Rhythm Pulse Strength Respiratory Rate 23 21 Respiratory Effort / Characteristics Respiratory Depth Respiratory Pattern Blood Pressure 104/80 Blood Pressure [Left Arm] Blood Pressure Mean 88 Blood Pressure Mean [Left Arm] Blood Pressure Position Pulse Oximetry Oxygen Delivery Method Sepsis Recent Fever Within 48 Hours Sepsis New/Unexplained Change in Mental Status Sepsis Action Taken by Nursing Laboratory Data Result diagrams: 07/09/20 16:49 07/09/20 16:49 Lab Results 07/09/20 07/09/20 07/09/20 Range/Units 16:49 16:49 16:49 WBC 5.38 (4.8-10.8) K/uL RBC 4.14 L (4.7-6.1) M/uL Hgb 14.3 (14.0-18.0) g/dL Hct 42.4 (42-52) % MCV 102.4 H (80-100) fL MCH 34.5 H (25-34) pg MCHC 33.7 (32-36) g/dL RDW Std Deviation 53.9 H (36.4-46.3) fL RDW Coeff of Myrna 14.4 (11.5-14.5) % Plt Count 129 L (130-400) K/uL MPV 11.0 H (7.4-10.4) fL Immature Gran % (Auto) 0.2 % Neut % (Auto) 58.9 % Lymph % (Auto) 24.7 % [place] % (Auto) 16.0 % Eos % (Auto) 0.0 % Baso % (Auto) 0.2 % Neut # (Auto) 3.17 (1.4-6.5) K/uL Lymph # (Auto) 1.33 (1.2-3.4) K/uL [place] # (Auto) 0.86 H (0.11-0.59) K/uL Eos # (Auto) 0.00 (0-0.5) K/uL Baso # (Auto) 0.01 (0-0.2) K/uL Immature Gran # (Auto) 0.01 (0.00-0.02) K/uL PT (9.0-12.0) Seconds INR (0.9-1.1) D-Dimer 1430 H* (0-500) ug/L FEU Sodium 141 (136-145) mmol/L Potassium 3.7 (3.5-5.1) mmol/L Chloride 108 H (98-107) mmol/L Carbon Dioxide 24 (21-32) mmol/L Anion Gap 9.0 (3-11) BUN 22 H (7-18) mg/dl Creatinine 1.03 (0.6-1.4) mg/dl Est Cr Clr Drug Dosing 55.1 ml/min Est GFR ( Amer) 77.0 Est GFR (Non-Af Amer) 66.4 BUN/Creatinine Ratio 21.8 H (10-20) Glucose 144 H (70-99) mg/dl Calcium 8.0 L (8.5-10.1) mg/dl Total Bilirubin 0.8 (0.2-1) mg/dl AST 39 H (15-37) U/L ALT 31 (12-78) U/L Alkaline Phosphatase 70 (45-117) U/L Troponin I 0.026 (0-0.045) ng/ml Total Protein 6.2 L (6.4-8.2) gm/dl Albumin 2.9 L (3.4-5.0) gm/dl Globulin 3.3 (2.5-4.0) gm/dl Albumin/Globulin Ratio 0.9 (0.9-2) Lipase 250 (73-393) U/L 07/09/20 Range/Units 16:49 WBC (4.8-10.8) K/uL RBC (4.7-6.1) M/uL Hgb (14.0-18.0) g/dL Hct (42-52) % MCV (80-100) fL MCH (25-34) pg MCHC (32-36) g/dL RDW Std Deviation (36.4-46.3) fL RDW Coeff of Myrna (11.5-14.5) % Plt Count (130-400) K/uL MPV (7.4-10.4) fL Immature Gran % (Auto) % Neut % (Auto) % Lymph % (Auto) % [place] % (Auto) % Eos % (Auto) % Baso % (Auto) % Neut # (Auto) (1.4-6.5) K/uL Lymph # (Auto) (1.2-3.4) K/uL [place] # (Auto) (0.11-0.59) K/uL Eos # (Auto) (0-0.5) K/uL Baso # (Auto) (0-0.2) K/uL Immature Gran # (Auto) (0.00-0.02) K/uL PT 28.3 H (9.0-12.0) Seconds INR 3.0 H (0.9-1.1) D-Dimer (0-500) ug/L FEU Sodium (136-145) mmol/L Potassium (3.5-5.1) mmol/L Chloride (98-107) mmol/L Carbon Dioxide (21-32) mmol/L Anion Gap (3-11) BUN (7-18) mg/dl Creatinine (0.6-1.4) mg/dl Est Cr Clr Drug Dosing ml/min Est GFR ( Amer) Est GFR (Non-Af Amer) BUN/Creatinine Ratio (10-20) Glucose (70-99) mg/dl Calcium (8.5-10.1) mg/dl Total Bilirubin (0.2-1) mg/dl AST (15-37) U/L ALT (12-78) U/L Alkaline Phosphatase (45-117) U/L Troponin I (0-0.045) ng/ml Total Protein (6.4-8.2) gm/dl Albumin (3.4-5.0) gm/dl Globulin (2.5-4.0) gm/dl Albumin/Globulin Ratio (0.9-2) Lipase (73-393) U/L Administered Medications Discontinued Medications Sodium Chloride (Nss 1000ml) 1,000 mls @ 999 mls/hr IV .Q1H1M ONE Stop: 07/09/20 18:11 Last Infusion: 07/09/20 18:18 Dose: 0 mls/hr Documented by: [id number] Admin: 07/09/20 17:14 Dose: 999 mls/hr Documented by: [id number] Discharge Plan Visit Data Chief Complaint: Syncope Stated Complaint: SYNCOPE ED Provider: Haroon Sheramn Discharge Problem: COVID-19, Syncope, Hypotension Forms Stand Alone Forms: [facility] Prescriptions Prescriptions: No Action diltiazem HCl [Tiadylt ER] 180 mg capsule,extended release 24 hr 180 mg PO DAILY RF: 0 ammonium lactate 12 % lotion 1 applic topical DIRECTED RF: 0 simvastatin 20 mg tablet 20 mg PO DAILY RF: 0 lisinopril 10 mg tablet 10 mg PO DAILY RF: 0 warfarin [Jantoven] 5 mg tablet 5 mg PO DIRECTED RF: 0 clotrimazole 1 % solution 1 applic TOPICAL DIRECTED RF: 0 cephalexin 500 mg capsule 500 mg PO Q6H 5 Days Qty: 20 RF: 0 calcium 500 mg Tablet 1,000 mg PO DAILY RF: 0 aspirin [Aspirin Low Dose] 81 mg Tablet,Delayed Release (Dr/Ec) 81 mg PO DAILY RF: 0 cholecalciferol (vitamin D3) [Vitamin D3] 50 mcg (2,000 unit) Capsule 50 mcg PO BID RF: 0 PreserVision AREDS 7,160 unit- 113 mg-100 unit Tablet 1 tab PO BID RF: 0 Discharge Problem: Syncope Qualifiers: Syncope type: unspecified Qualified Code(s): R55 - Syncope and collapse Hypotension Qualifiers: Hypotension type: unspecified hypotension type Qualified Code(s): I95.9 - Hypotension, unspecified
[2020-07-09] MEDS ORDERED: SODIUM CHLORIDE 0.9% 1000ML 1,000 ML IV ONE (17:11)
--- NOTE | 2020-07-09 17:20 | XRay Report ---
XR chest 1V portable CLINICAL HISTORY: Chest Pain COMPARISON STUDY: Chest radiograph July 06, 2020. FINDINGS: No pneumothorax or pleural effusion is noted. Cardiomegaly is unchanged. There is mild inte rstitial prominence. No consolidation is identified. IMPRESSION: 1. Mild interstitial prominence. This favors pulmonary vascular congestion. An infectious process cou ld appear similar. 2. Cardiomegaly. ACT 112: Negative or not required by law. Electronically signed by: Surendra Yarbrough M.D. 07/09/2020 5:19 PM
[2020-07-09 17:23] LABS: Albumin Level 2.9 gm/dl (3.4-5.0); BUN Creatinine Ratio 21.8 (10-20); Creatinine Clr Calc Pharmacy 55.1 ml/min; Est GFR (Non-African American) 66.4; Potassium 3.7 mmol/L (3.5-5.1)
--- NOTE | 2020-07-09 17:23 | CT Scan Report ---
CT OF THE HEAD WITHOUT CONTRAST CLINICAL HISTORY: Altered mental status. COMPARISON STUDY: Head CT July 06, 2020. CT DOSE: 638.56 mGycm TECHNIQUE: Helical axial images of the head were obtained without IV contrast. Automated exposure con trol was utilized for the study. A dose lowering technique was utilized adhering to the principles o f ALARA. FINDINGS: No acute intracranial hemorrhage, midline shift or mass effect is present. White matter hyp odensities are unchanged and suggest small vessel disease. 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 The ventricular system is unremarkable. The basal cisterns are patent. No extra- axial collections are present. There are no findings to suggest acute dural sinus thrombosis or acute territorial infarct. No significant calvarial abnormalities are present. Visualized portions of the sinuses and mastoid air cells are clear. IMPRESSION: No acute intracranial findings. No change in appearance of the brain. ACT 112: Negative or not required by law. Electronically signed by: Surendra Yarbrough M.D. 07/09/2020 5:22 PM
[2020-07-09 17:28] LABS: Albumin Globulin Ratio 0.9 (0.9-2); Bilirubin,Total 0.8 mg/dl (0.2-1); Globulin 3.3 gm/dl (2.5-4.0); Total Protein 6.2 gm/dl (6.4-8.2); Troponin I 0.026 ng/ml (0-0.045)
[2020-07-09 17:30] LABS: D Dimer 1430 ug/L FEU (0-500)
[2020-07-09 17:41] LABS: Prothrombin Time 28.3 Seconds (9.0-12.0)
[2020-07-09] MEDS ORDERED: MAGNESIUM HYDROXIDE SUSP 30 ML UDC PO PRN (18:03)
[2020-07-09] MEDS ORDERED: ONDANSETRON INJ 2 MG/ML 2 ML VIAL IV PRN (18:03)
[2020-07-09] MEDS ORDERED: ALUMINUM/MAGNESIUM SUSP 30 ML UDC PO PRN (18:03)
[2020-07-09] MEDS ORDERED: ACETAMINOPHEN 325 MG TAB PO PRN (18:03)
[2020-07-09] MEDS ORDERED: REMDESIVIR 200 MG in SODIUM CHLORIDE 0.9% 210 ML IV STA (18:11)
--- NOTE | 2020-07-09 18:13 | Discharge Summary ---
Date of Service July 09, 2020 Discharge Data Allergies Allergy/AdvReac Type Severity Reaction Status Date / Time No Known Allergies Allergy Unknown Verified 08/05/17 09:43 Consultations 07/09/20 17:48 ED Decision to Admit Stat Ordered Studies 07/09/20 16:57 CT head/brain wo con Stat Discharge Plan Forms Stand Alone Forms: [facility] Prescriptions Prescriptions: No Action atorvastatin 20 mg tablet 20 mg PO DAILY RF: 0 diltiazem HCl [Tiadylt ER] 180 mg capsule,extended release 24 hr 180 mg PO DAILY RF: 0 ammonium lactate 12 % lotion 1 applic topical DIRECTED RF: 0 simvastatin 20 mg tablet 20 mg PO DIRECTED RF: 0 lisinopril 10 mg tablet 10 mg PO DIRECTED RF: 0 warfarin [Jantoven] 5 mg tablet 5 mg PO DIRECTED RF: 0 clotrimazole 1 % solution 1 applic TOPICAL DIRECTED RF: 0 cephalexin 500 mg capsule 500 mg PO Q6H 5 Days Qty: 20 RF: 0
[2020-07-09] MEDS: DEXAMETHASONE SOD INJ 4 MG/ML VIAL IV SCH (18:40)
--- NOTE | 2020-07-09 19:19 | History & Physical Report ---
Date of Service July 09, 2020 Assessment & Plan (1) COVID-19: Acute Hypoxemic resp failure due to COVID 19 infection admitted with hypoxia , hypotension , COVID 19 positive started on IV remdesivir , IV dexamethasone convalescent plasma not ordered -pt has minimum symptoms , elevated BNP suggestive of possible diastolic heart failure due to acute illness cont supportive care in COVID 19 telemetry unit D dimer elevated 1800 possible due to COVID19 pneumonia , given theraputic INR , thromboembolic event -PE/DVT less likely cont on Coumadin , goal INR 2-3 daily D dimer/ferritin level ordered as an inflammatory marker for COVID 19 infection (2) Metabolic encephalopathy: baseline dementia, worsening of mental status , lethargy due to acute illness , COVID [address] head negative for acute illness pt was much more awake and alert after wards able to answer simple questions can not recall being sick and coming to Hospital no slurred speech or dysarthria , no complain of headache or visual distubance (3) Syncope: brief episode of syncope possible due to acute illness , hypotension CT head negative awake and alert after IV fluid BP remains stable now monitor in tele eval for any cardiac arrhythmia resting ECHO not ordered -to limit infection no evidence of ACS -or indication for acute cardiac intervention pt would benefit with out pt ECHO in 3-4 weeks after recovering from COVID 19 infection (4) Hypotension: brief episode of hypotension due to acute illness /dehydration BP stable after IV fluids no evidence of sepsis Diltiazem continued with holding parameters ( high risk for Afib RVR in acute illness ) monitor in tele (5) Chronic atrial fibrillation: remains rate controlled cont Verapamil with holding parameters for hypotension /bradycardia monitor in tele update given to Pt's Son in Law Dr Cal March # [phone] discussed treatment plan in detail , in agreement with above , all questions answered He would the primary contact acid plant operator helper for pt's care Son IN Law hoping to get update from providers periodically -he will update pt's and rest of the family members accordingly . Disposition : lives in independent living at [facility] PT/OT eval prior to discharge History of Present Illness Chief Complaint: syncope /covid 19 pneumonia : Primary Care Provider: [facility] this is a 84 yo M with past medical hx of HTN , chronic afib on Coumadin , CAD , peripheral vascular disease , hx of bladder ca , admitted with pneumonia /hypoxia pt resides in [facility] with his , independent in ADL's , dementia with mostly short time memory loss, usually oriented to place and person . pt has been having low grade fever , nasal congestion for past several days , he and his both received ist dose of Medorna COVID 19 vaccine on 07/04 on 07/06 -pt was more confused , had low grade fever -which lead to ER visit COVID 19 test was positive vital was stable, no hypoxia , lab, chest xray unremarkable , except for positive UA pt was sent home PO keflex ordered for possible UTI pt's is positive for COVID 19 as well this morning , pt was very lethargic , difficult to arouse , had low grade fever in ER pt was found hypoxic SPO2 84% in room air /requiring 2 L 02 ( not on home oxygen ) Cxray no significant infiltrate or effusion D dimer elevated 1800 , along wtih inflammatory markers : elevated ferritin pro andrea wnl pt was found to be hypotensive SBP in 90's in ER , responded to IV fluid iNR therapeutic pt admitted to COVID 19 infection , acute hypoxemic resp failure due to COVID 19 Allergies Allergy/AdvReac Type Severity Reaction Status Date / Time No Known Allergies Allergy Verified 07/09/20 18:15 Home Medications Medication Instructions Recorded Confirmed Type ammonium lactate 1 applic TOPICAL DIRECTED 07/06/20 07/09/20 History cephalexin 500 mg PO Q6H 5 Days #20 cap 07/06/20 07/09/20 Rx clotrimazole 1 applic TOPICAL DIRECTED 07/06/20 07/09/20 History diltiazem HCl [Tiadylt ER] 180 mg PO DAILY 07/06/20 07/09/20 History lisinopril 10 mg PO DAILY 07/06/20 07/09/20 History simvastatin 20 mg PO DAILY 07/06/20 07/09/20 History warfarin [Jantoven] 5 mg PO DIRECTED 07/06/20 07/09/20 History aspirin [Aspirin Low Dose] 81 mg PO DAILY 07/09/20 07/09/20 History calcium 1,000 mg PO DAILY 07/09/20 07/09/20 History cholecalciferol (vitamin D3) 50 mcg PO BID 07/09/20 07/09/20 History [Vitamin D3] vitamins A,C,G-ryxw-ixljls 1 tab PO BID 07/09/20 07/09/20 History [PreserVision AREDS] Past Med/Surg History Social History Smoking Status: Never smoker Second Hand Exposure: No; Do You Dip or Chew Tobacco: No; Tobacco Cessation Education Requested by Patient: No Hx Alcohol Use: No Hx Substance Use: No Preferred Language: Azeri Communication Ability: Effective Clinical Psychologist Private Practice Required: No Beliefs That Will Affect Care: None Current Living Situation: Spouse Other Information That Helps Us Care for You: No Feels Safe at Home: Yes Safety Concerns: Feels Safe At This Time Assistive Devices: Glasses Review of Systems Review of Systems: Unobtainable due to cognitive status Physical Exam Constitutional: WD/WN, vitals as above Eyes: + anicteric sclerae Neck: trachea midline, no thyromegaly Respiratory: normal respiratory effort; no respiratory distress Gastrointestinal (Abdomen): normal bowel sounds, soft, nontender, no hepatosplenomegaly Musculoskeletal: no cyanosis or clubbing, extremities motor strength 5/5 Skin: no rashes, warm and dry Neurologic: PERRL, EOMI, accommodation nl, no face palsy, no dysarthria (baseline dementia) Psychiatric: Orientation: alert and oriented to person Results & Data Results & Data ([facility]) Vital Signs (Past 12 Hours) Vital Signs Temp Pulse Pulse Resp BP BP Pulse Ox 07/09/20 18:01 73 21 07/09/20 18:00 85 23 104/80 07/09/20 17:36 76 18 106/66 07/09/20 17:31 75 23 07/09/20 17:30 79 26 H 106/66 07/09/20 17:16 76 19 116/60 07/09/20 17:01 77 22 96 07/09/20 17:00 78 27 H 121/74 07/09/20 16:57 36.5 C 82 16 91/63 L 88 L 07/09/20 16:49 77 23 91/63 L 07/09/20 16:47 84 23 (1) Syncope Syncope type: unspecified Qualified Code(s): R55 - Syncope and collapse (2) Hypotension Hypotension type: unspecified hypotension type Qualified Code(s): I95.9 - Hypotension, unspecified
[2020-07-09] MEDS ORDERED: SODIUM CHLORIDE 0.9% 1000ML 1,000 ML IV SCH ×2 (20:00→21:30)
[2020-07-09 20:55] LABS: C Reactive Protein 4.47 mg/dl (0-0.29)
[2020-07-09] MEDS: SODIUM CHLORIDE 0.9% 10ML FLUSH IV SCH (21:00)
[2020-07-09] MEDS ORDERED: ENOXAPARIN INJ 40 MG/0.4 ML SYR SQ SCH (22:00)
[2020-07-09] MEDS: cefTRIAXone SODIUM 2,000 MG in DEXTROSE 5% 50 ML IV SCH (22:12)
[2020-07-09 23:25] LABS: D Dimer 1180 ug/L FEU (0-500)
[2020-07-10 07:22] LABS: Hematocrit (blood only) 44.1 % (42-52); Hemoglobin 14.9 g/dL (14.0-18.0); Mean Corpuscular Hemoglobin 34.4 pg (25-34); Mean Corpuscular Hgb Conc 33.8 g/dL (32-36); Mean Corpuscular Volume 101.8 fL (80-100); Mean Platelet Volume 11.3 fL (7.4-10.4); Platelet Count 108 K/uL (130-400); RDW Coefficient of Variation 14.2 % (11.5-14.5); RDW Standard Deviation 53.4 fL (36.4-46.3); Red Blood Count 4.33 M/uL (4.7-6.1); White Blood Count 3.04 K/uL (4.8-10.8)
[2020-07-10 07:45] LABS: INR 3.5 (0.9-1.1); Prothrombin Time 32.3 Seconds (9.0-12.0)
[2020-07-10 08:17] LABS: BUN Creatinine Ratio 24.1 (10-20); Calcium 8.4 mg/dl (8.5-10.1); Creatinine Clr Calc Pharmacy 77.8 ml/min; Est GFR (African American) 98.7; Est GFR (Non-African American) 85.2; Potassium 4.2 mmol/L (3.5-5.1)
[2020-07-10] MEDS: dilTIAZem ER 180 MG CAPCR PO SCH (08:58)
[2020-07-10] MEDS: CEROVITE ADV FORMULA TAB PO SCH ×2 (08:59→21:17)
[2020-07-10] MEDS: CALCIUM CARBONATE 1250MG TAB PO SCH (08:59)
[2020-07-10] MEDS: ASPIRIN 81 MG ECTAB PO SCH (08:59)
--- NOTE | 2020-07-10 08:59 | XRay Report ---
XR chest 1V portable CLINICAL HISTORY: ff up, hypoxia, covid infection COMPARISON STUDY: Chest radiograph July 09, 2020. FINDINGS: There is no pneumothorax or pleural effusion. Cardiomegaly is unchanged. Interstitial thick ening and patchy bilateral opacities have mildly progressed. IMPRESSION: Progression of interstitial thickening and patchy bilateral airspace opacities which fav or an infectious process. ACT 112: Negative or not required by law. Electronically signed by: Surendra Yarbrough M.D. 07/10/2020 8:57 AM
[2020-07-10] MEDS: guaiFENesin 600 MG TABCR PO SCH ×2 (09:47→21:17)
[2020-07-10] MEDS: dexAMETHasone 6 MG in SYRINGE 0 ML IV SCH (09:48)
[2020-07-10] MEDS: DEXAMETHASONE SOD INJ 4 MG/ML VIAL IV SCH (10:06)
--- NOTE | 2020-07-10 10:44 | Hospitalist Progress Note ---
Date of Service July 10, 2020 Assessment & Plan (1) COVID-19: Acute Hypoxemic resp failure due to COVID 19 infection clinically improving currently O2 requirement increased though from 2 to 5 L via NC repeat CXR: bilateral infiltrates continue Remdesivir, Decadron continue Ceftriaxone + Doxycycline Test Data Developer consulted (2) Metabolic encephalopathy: per admitting SVC notes: baseline dementia, worsening of mental status , lethargy due to acute illness , COVID [address] head negative for acute illness pt was much more awake and alert after wards able to answer simple questions can not recall being sick and coming to Hospital no slurred speech or dysarthria , no complain of headache or visual disturbance patient pleasantly confused seems to be back to baseline per discussion with monitor closely for hospital delirium, corticosteroid induced psychosis (3) Syncope: per admitting SVC notes: brief episode of syncope possible due to acute illness , hypotension CT head negative awake and alert after IV fluid BP remains stable now monitor in tele eval for any cardiac arrhythmia resting ECHO not ordered -to limit infection no evidence of ACS -or indication for acute cardiac intervention pt would benefit with out pt ECHO in 3-4 weeks after recovering from COVID 19 infection --- BP stable currently on A fib, rate controlled (4) Hypotension: per admitting SVC notes: brief episode of hypotension due to acute illness /dehydration BP stable after IV fluids no evidence of sepsis Diltiazem continued with holding parameters ( high risk for Afib RVR in acute illness ) -- BP stable overall (5) Chronic atrial fibrillation: rate controlled cont Verapamil with holding parameters for hypotension /bradycardia INR 3.5 hold coumadin plan of care discussed in detail and at length with patient's and son in Law Dr. Wong over the phone all questions answered they are understanding, agreeable, comfortable with the plan of care Disposition : lives in independent living at [facility] PT/OT eval prior to discharge Admission and Anticipated Discharge Date Admission Date: July 09, 2020 Subjective delayed entry date of service as above seen resting in bed, sitting up, on 4 L of O2 via nasal cannula in good spirits, oriented to person, answers simple questions appropriately but does get confused states he feels fine overall denies dyspnea, has intermittent cough no chest pain, abdominal pain, nausea/vomiting appetite is good no other symptoms Review of Systems Review of Systems: All systems reviewed & are unremarkable except as noted in Subjective Physical Exam Physical Exam: General- oriented x 1, not in distress, speaks in sentences with no effort or accessory muscle use Eyes- anicteric Neck- no JVD Lungs- somewhat diminished but clear breath sounds bilaterally, no rales/wheezes Heart- normal rate, irregularly irregular rhythm; no murmurs Abdomen- normal bowel sounds, nondistended, soft, nontender Extremities- no pretibial edema, no calf tenderness Neuro- alert, oriented x 1; hard of hearing, pleasantly confused but otherwise no gross focal neurologic deficits Skin- warm & dry Results & Data Results & Data ([facility]) Vital Signs (Past 12 Hours) Vital Signs Temp Pulse Resp BP Pulse Ox 07/10/20 07:41 36.6 C 93 H 28 H 131/79 91 07/10/20 03:12 36.6 C 80 20 133/90 91 07/10/20 00:41 91 07/10/20 00:35 87 L 07/09/20 23:55 36.9 C 84 22 126/82 92 (1) Syncope Syncope type: unspecified Qualified Code(s): R55 - Syncope and collapse (2) Hypotension Hypotension type: unspecified hypotension type Qualified Code(s): I95.9 - Hypotension, unspecified
[2020-07-10 11:15] LABS: Albumin Level 2.7 gm/dl (3.4-5.0); Bilirubin Direct 0.1 mg/dl (0-0.2); Bilirubin,Total 0.5 mg/dl (0.2-1)
--- NOTE | 2020-07-10 12:20 | Electrocardiogram Report ---
Test Reason : Blood Pressure : / mmHG Vent. Rate : 084 BPM Atrial Rate : 104 BPM P-R Int : 000 ms QRS Dur : 116 ms QT Int : 400 ms P-R-T Axes : 000 -64 028 degrees QTc Int : 472 ms Atrial fibrillation with premature ventricular or aberrantly conducted complexes Left axis deviation Incomplete right bundle branch block Borderline Criteria for Old Inferior infarct Cannot rule out Old Anterior infarct (cited on or before 06-JUL-2020) Abnormal ECG When compared with ECG of 06-JUL-2020 10:20, Borderline Criteria for Inferior infarct is now Present Otherwise no significant change Confirmed by Jaswinder Grace ([id number]) on 07/10/2020 12:20:33 PM Referred By: [facility] Confirmed By:Jaswinder Grace
[2020-07-10] MEDS ORDERED: DOXYCYCLINE HYCLATE 100 MG CAP PO SCH (14:35)
--- NOTE | 2020-07-10 15:01 | Pulmonary Consultation ---
Date of Consultation July 10, 2020 Assessment & Plan (1) COVID-19: Impression: This is an 84-year-old male that was tested and found positive be Covid 4 days ago on 07/06/2020. Prior to that he states that he had a couple of days of symptoms and was convinced to come to the emergency department by his . Over the last 2 to 3 days, patient has been more lethargic and just felt "off". He presented again and this time was admitted for further evaluation and treatment. He was started on remdesivir as well as dexamethasone and empiric antibiotic treatment with ceftriaxone and doxycycline. Urinary culture was found to be positive for diphtheroids with no sensitivity to follow. There are also low counts of other mixed diana. Procalcitonin is negative, he has no leukocytosis, D-dimer is trending downward, INR is therapeutic at 3.5, no transaminitis, no renal failure. Recommendations: 1. COVID-19: Patient was already started on remdesivir and dexamethasone. Inasmuch as symptoms started 5 or 6 days ago there is probably no indication for remdesivir and no indication for convalescent plasma. Consider continuing dexamethasone and discontinue the remdesivir at this point. Patient is afebrile at this time. Would treat any fever or pain with Tylenol and avoid other NSAIDs. Patient was on 6 L/min via nasal cannula. He is currently titrated down to 4 L/min via nasal cannula and oxygenating at 95 to 96%. She continue to attempt to titrate oxygen off as tolerated. Chest x-ray does reveal some progression of interstitial thickening and patchy bilateral airspace opacities. Can continue empiric antibiotics but would discontinue after 5 days. Continue supportive care for inflammatory pneumonitis. 2. Chronic anticoagulation for atrial fibrillation with RVR: Patient currently is in atrial fibrillation but is rate controlled in the 60s. INR is therapeutic at 3.5. Continue warfarin with hold parameters. Continue to monitor on telemetry. 3. Hypertension: Home medications include diltiazem, lisinopril. Continue at this time. Patient did have a brief episode of hypotension with a blood pressur e of 91/63. Since that time he has been hemodynamically stable and currently has a systolic blood pressure of 130. Thank you for including us in the care of this patient. We will sign off at this time. Please feel free to reconsult with further concerns. Please refer to Dr. Harrell's addendum and corrections for further recommendations. (2) Chronic atrial fibrillation: (3) Hypotension: Hypotension type: unspecified hypotension type Qualified Code(s): I95.9 - Hypotension, unspecified (4) Nonobstructive atherosclerosis of coronary artery: (5) Non-ischemic cardiomyopathy: (6) HTN (hypertension): Hypertension type: unspecified Qualified Code(s): I10 - Essential (primary) hypertension (7) PAD (peripheral artery disease): (8) Hyperparathyroidism: Supervising Physician Co-Signing Physician Notes Seen and examined. EMR and imaging reviewed. Discussed with critical care LAURY and agree with assessment and plan as noted. 84-year-old male admitted with Covid pneumonia. His oxygen saturations are reasonably good. He is outside the window for remdesivir and given uncertainties with convalescent plasma including neutralizing titers etc., would not favor administration at this point time. Would continue Decadron. Wean oxygen as tolerated. Out of bed as tolerated. Would not recommend routine use of antimicrobial agents. Would favor keeping the patient on the slightly volume down side to prevent pulmonary vascular congestion. Should the patient have worsening of his oxygenation, could consider trial of self proning or transition to heated high flow oxygen or noninvasive positive pressure ventilation. Will sign off at this point time. Feel free to contact us if we can be of additional assistance. Should the patient's clinical condition worsen, would have a low threshold for involving palliative care to define goals of therapy given poor outcomes of octogenarians with declining respiratory status and COVID-19 pneumonia History of Present Illness Attending Physician: Hamzah Hull MD History of Present Illness Attending: Dr. Harrell Past medical history includes hypertension, chronic atrial fibrillation on Coumadin, CAD, peripheral vascular disease, history of bladder cancer. This is an 84-year-old male that was admitted July 09, 2020 with shortness of breath. The patient reports he lives at the [facility] and has been feeling rundown. His prompted him to come to the emergency department where he was found to be Covid positive. He was hypoxic and put on supplemental oxygen. He has no prior history of supplemental oxygen use per his report. He currently is day 2 of remdesivir and dexamethasone and is empirically being treated with antibiotics including doxycycline and ceftriaxone. Procalcitonin was negative is 0.05. Nasal swab was positive for SARS CoV-2 by PCR and negative for influenza A, influenza B, and RSV on 07/06/2020. Patient currently states that he has no shortness of breath on supplemental oxygen. He has no chest pain or tightness. He has no back pain. He has no diarrhea. He further denies fever, chills, sweats, rigors. He is a prior smoker but quit smoking cigarettes about 10 years ago due to cost. He denies any significant pulmonary disease and is not on any inhalers or nebulized treatments at home. He does have a history of chronic atrial fibrillation and hypertension. The patient was in the emergency department on 07/06/2020 and discharged home on Keflex 500 mg p.o. every 6 hours for 5 days. He was found to be Covid positive at that time and sent home with Covid instructions. Physical therapy evaluation was completed today and is recommended that the patient undergo nursing home treatment for rehab 3-5 times per week for 1 week. Allergies Allergy/AdvReac Type Severity Reaction Status Date / Time No Known Allergies Allergy Verified 07/09/20 18:15 Home Medications Medication Instructions Recorded Confirmed Type ammonium lactate 1 applic TOPICAL DIRECTED 07/06/20 07/09/20 History cephalexin 500 mg PO Q6H 5 Days #20 cap 07/06/20 07/09/20 Rx clotrimazole 1 applic TOPICAL DIRECTED 07/06/20 07/09/20 History diltiazem HCl [Tiadylt ER] 180 mg PO DAILY 07/06/20 07/09/20 History lisinopril 10 mg PO DAILY 07/06/20 07/09/20 History simvastatin 20 mg PO DAILY 07/06/20 07/09/20 History warfarin [Jantoven] 5 mg PO DIRECTED 07/06/20 07/09/20 History aspirin [Aspirin Low Dose] 81 mg PO DAILY 07/09/20 07/09/20 History calcium 1,000 mg PO DAILY 07/09/20 07/09/20 History cholecalciferol (vitamin D3) 50 mcg PO BID 07/09/20 07/09/20 History [Vitamin D3] vitamins A,C,L-[id number]-[id number] 1 tab PO BID 07/09/20 07/09/20 History [PreserVision AREDS] Patient History Medical History (Updated 07/10/20 @ 15:12 by Philip Garcia PA-C) Amputation of right arm "s/p reattachment " Chronic atrial fibrillation "on coumadin" COVID-19 HLD (hyperlipidemia) HTN (hypertension) Hyperparathyroidism PAD (peripheral artery disease) Surgical History (Updated 07/10/20 @ 15:05 by Philip Garcia PA-C) S/P AAA repair "Dec 2012" Family History (Updated 07/10/20 @ 15:05 by Philip Garcia PA-C) Other Family history non-contributory Social History (Updated 07/10/20 @ 15:07 by Philip Garcia PA-C) Smoking Status: Former smoker Tobacco Type: Cigarettes Number of Years Since Quit: 10; Second Hand Exposure: No; Do You Dip or Chew Tobacco: No; Tobacco Cessation Education Requested by Patient: No Hx Alcohol Use: No Hx Substance Use: No Preferred Language: Sinhala Communication Ability: Effective Rd Project Manager Required: No Beliefs That Will Affect Care: None Current Living Situation: Spouse Current Living Situation Comment: Independent living the [facility] current occupation: 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 No bronchospasm appreciated. Minimal cough with deep inspiration. No production of sputum during my exam. HEART: Irregular, irregular, rate controlled in the 60s ABDOMEN: Soft, NT, ND, BS Present EXTREMITIES: No LE edema, pedal pulses intact NEURO: A&OX3 Results & Data Results & Data ([facility]) Vital Signs (Past 12 Hours) Vital Signs Temp Pulse Resp BP Pulse Ox 07/10/20 11:39 37.1 C 92 H 20 126/71 97 07/10/20 07:41 36.6 C 93 H 28 H 131/79 91 07/10/20 03:12 36.6 C 80 20 133/90 91 Laboratory Results 07/10/20 06:16 07/10/20 06:16 Diagnostic Findings XR chest 1V portable CLINICAL HISTORY: ff up, hypoxia, covid infection COMPARISON STUDY: Chest radiograph July 09, 2020. FINDINGS: There is no pneumothorax or pleural effusion. Cardiomegaly is unchanged. Interstitial thickening and patchy bilateral opacities have mildly progressed. IMPRESSION: Progression of interstitial thickening and patchy bilateral airspace opacities which favor an infectious process. Electronically signed by: Surendra Yarbrough M.D. 07/10/2020 8:57 AM PG Care Time/CCT Total # of Minutes Spent Total Time Spent with Patient: Total time spent is greater than 50% in coordinat ion of care (as documented) at patient's floor/unit and/or counseling patient: 60 minutes Coding Level of Care Code 31490 Inpt Consult Level 4 Diagnoses COVID-19 U07.1 Chronic atrial fibrillation I48.2 Hypotension I95.9 Hypotension type: unspecified hypotension type Nonobstructive atherosclerosis of coronary artery I25.10 Non-ischemic cardiomyopathy I42.8 HTN (hypertension) I10 Hypertension type: unspecified PAD (peripheral artery disease) I73.9 Hyperparathyroidism E21.3 Time Spent (min) 60
[2020-07-10] MEDS ORDERED: WARFARIN SOD 5 MG TAB PO SCH (16:00)
[2020-07-10] MEDS ORDERED: REMDESIVIR 100 MG in SODIUM CHLORIDE 0.9% 230 ML IV SCH (20:00)
[2020-07-10] MEDS: SODIUM CHLORIDE 0.9% 10ML FLUSH IV SCH (20:21)
[2020-07-10] MEDS: cefTRIAXone SODIUM 2,000 MG in DEXTROSE 5% 50 ML IV SCH (21:17)
[2020-07-10 21:19] LABS: D Dimer 1870 ug/L FEU (0-500)
[2020-07-11] MEDS: DOXYCYCLINE HYCLATE 100 MG CAP PO SCH ×3 (00:41→18:40)
[2020-07-11 05:48] LABS: Basophils # (auto) 0.01 K/uL (0-0.2); Basophils % (auto) 0.1 %; Hematocrit (blood only) 47.1 % (42-52); Hemoglobin 16.3 g/dL (14.0-18.0); Immature Granulocytes # (auto) 0.02 K/uL (0.00-0.02); Immature Granulocytes % (auto) 0.3 %; Lymphocytes # (auto) 0.78 K/uL (1.2-3.4); Lymphocytes % (auto) 10.1 %; Mean Corpuscular Hemoglobin 34.8 pg (25-34); Mean Corpuscular Hgb Conc 34.6 g/dL (32-36); Mean Corpuscular Volume 100.4 fL (80-100); Mean Platelet Volume 11.3 fL (7.4-10.4); Monocytes # (auto) 0.66 K/uL (0.11-0.59); Monocytes % (auto) 8.6 %; Neutrophils # (auto) 6.23 K/uL (1.4-6.5); Neutrophils % (auto) 80.9 %; Platelet Count 133 K/uL (130-400); RDW Coefficient of Variation 14.1 % (11.5-14.5); RDW Standard Deviation 51.7 fL (36.4-46.3); Red Blood Count 4.69 M/uL (4.7-6.1)
[2020-07-11 05:56] LABS: INR 3.1 (0.9-1.1); Prothrombin Time 28.6 Seconds (9.0-12.0)
[2020-07-11 06:40] LABS: Albumin Level 3.1 gm/dl (3.4-5.0); BUN Creatinine Ratio 28.3 (10-20); Bilirubin Direct 0.2 mg/dl (0-0.2); Bilirubin,Total 0.7 mg/dl (0.2-1); Calcium 9.1 mg/dl (8.5-10.1); Creatinine Clr Calc Pharmacy 74.7 ml/min; Est GFR (African American) 97.1; Est GFR (Non-African American) 83.8; Ferritin 1045.5 ng/ml (8-388); Total Protein 6.9 gm/dl (6.4-8.2)
[2020-07-11] MEDS: ASPIRIN 81 MG ECTAB PO SCH (08:30)
[2020-07-11] MEDS: CEROVITE ADV FORMULA TAB PO SCH ×2 (08:30→20:23)
[2020-07-11] MEDS: guaiFENesin 600 MG TABCR PO SCH ×2 (08:30→20:23)
[2020-07-11] MEDS: dilTIAZem ER 180 MG CAPCR PO SCH (08:30)
[2020-07-11] MEDS: dexAMETHasone 6 MG in SYRINGE 0 ML IV SCH (08:30)
[2020-07-11] MEDS: CALCIUM CARBONATE 1250MG TAB PO SCH (08:30)
[2020-07-11] MEDS: REMDESIVIR 100 MG in SODIUM CHLORIDE 0.9% 230 ML IV SCH (11:28)
[2020-07-11] MEDS ORDERED: SIMVASTATIN 20 MG TAB PO SCH (13:30)
[2020-07-11] MEDS: lisinopril 10 MG TAB PO SCH (15:24)
--- NOTE | 2020-07-11 16:58 | Hospitalist Progress Note ---
Date of Service July 11, 2020 Assessment & Plan (1) COVID-19: Acute Hypoxemic resp failure due to COVID 19 infection continues to clinically improve currently O2 requirement down to 2L via NC D dimer slightly elevated but remains in the 8194-9268 range Ferritin 800 to 1000 repeat CXR 07/10: bilateral infiltrates continue Remdesivir, Decadron Day 3 continue Ceftriaxone + Doxycycline Day 3 Fire Lieutenant Marine consulted- recommendations noted updated and discussed plan of care with patient's son in Law Dr. Wong in detail and at length we have decided to administer Convalescent plasma in the event that patient's clinical status declines - requires 4-5 L O2 via NC order to obtain plasma placed but needs to call Dr. Hull/Dr. Daniels first prior to transfusion will need to pre-treat with Tylenol 500mg po prior to transfusion (2) Metabolic encephalopathy: per admitting SVC notes: baseline dementia, worsening of mental status , lethargy due to acute illness , COVID [address] head negative for acute illness pt was much more awake and alert after wards able to answer simple questions can not recall being sick and coming to Hospital no slurred speech or dysarthria , no complain of headache or visual disturbance patient pleasantly confused somewhat more confused today, but easily reoriented monitor closely for hospital delirium, corticosteroid induced psychosis discussed with RN (3) Syncope: per admitting SVC notes: brief episode of syncope possible due to acute illness , hypotension CT head negative awake and alert after IV fluid BP remains stable now monitor in tele eval for any cardiac arrhythmia resting ECHO not ordered -to limit infection no evidence of ACS -or indication for acute cardiac intervention pt would benefit with out pt ECHO in 3-4 weeks after recovering from COVID 19 infection --- BP stable currently on A fib, rate controlled (4) Hypotension: per admitting SVC notes: brief episode of hypotension due to acute illness /dehydration BP stable after IV fluids no evidence of sepsis Diltiazem continued with holding parameters ( high risk for Afib RVR in acute illness ) -- BP stable overall (5) Chronic atrial fibrillation: rate controlled cont Verapamil with holding parameters for hypotension /bradycardia INR 3.1 resume coumadin 2.5mg po daily INR daily plan of care discussed in detail and at length with patient's and son in Law Dr. Wong over the phone all questions answered they are understanding, agreeable, comfortable with the plan of care Disposition : lives in independent living at [facility] PT/OT eval , will need Rehab airport location manager on board Admission and Anticipated Discharge Date Admission Date: July 09, 2020 Subjective ff up for COVID 19 pneumonia, hypoxia seen resting in bedside chair, comfortable not in distress on 2 L NC, 94% O2 sats oriented to person, but not to time and placed calm, cooperative, pleasant easily reoriented states he feels fine overall breathing about the same as yesterday denies active dyspnea, chest pain, palpitations, cough states he walked in the halls today with no problems appetite is good- finished meals per RN observed to be a somewhat more confused today, but easily reoriented no other symptoms Review of Systems Review of Systems: All systems reviewed & are unremarkable except as noted in Subjective Physical Exam Physical Exam: General- oriented x 1, not in distress, speaks in sentences with no effort or accessory muscle use Eyes- anicteric Neck- no JVD Lungs- somewhat diminished but clear breath sounds bilaterally, no crackles no wheezing Heart- normal rate, irregularly irregular rhythm; no murmurs Abdomen- normal bowel sounds, nondistended, soft, nontender Extremities- no pretibial edema, no calf tenderness Neuro- alert, oriented x 1; decreased hearing but otherwise no gross focal neurologic deficits Skin- warm & dry Results & Data Results & Data ([facility]) Vital Signs (Past 12 Hours) Vital Signs Temp Pulse Pulse Resp BP Pulse Ox 07/11/20 16:00 36 C L 92 07/11/20 15:23 72 123/65 07/11/20 11:48 96 07/11/20 11:46 36.5 C 94 H 20 129/84 100 07/11/20 09:25 108 H 07/11/20 08:08 36.6 C 101 H 20 129/88 94 07/11/20 06:26 36.6 C 92 H 22 152/87 H 92 Laboratory Results Laboratory Results - last 24 hr 07/10/20 07/11/20 07/11/20 20:29 05:25 05:25 WBC RBC Hgb Hct MCV MCH MCHC RDW Std Deviation RDW Coeff of Myrna Plt Count MPV Immature Gran % (Auto) Neut % (Auto) Lymph % (Auto) Camp % (Auto) Eos % (Auto) Baso % (Auto) Neut # (Auto) Lymph # (Auto) Camp # (Auto) Eos # (Auto) Baso # (Auto) Immature Gran # (Auto) PT 28.6 H INR 3.1 H D-Dimer 1870 H* Sodium 140 Potassium 4.0 Chloride 107 Carbon Dioxide 24 Anion Gap 9.0 BUN 22 H Creatinine 0.76 Est Cr Clr Drug Dosing 74.7 Est GFR ( Amer) 97.1 Est GFR (Non-Af Amer) 83.8 BUN/Creatinine Ratio 28.3 H Glucose 133 H Calcium 9.1 Ferritin 1045.5 H Total Bilirubin 0.7 Direct Bilirubin 0.2 D AST 42 H ALT 47 Alkaline Phosphatase 78 Total Protein 6.9 Albumin 3.1 L Blood Type Antibody Screen 07/11/20 07/11/20 05:25 05:25 WBC 7.70 RBC 4.69 L Hgb 16.3 Hct 47.1 MCV 100.4 H MCH 34.8 H MCHC 34.6 RDW Std Deviation 51.7 H RDW Coeff of Myrna 14.1 Plt Count 133 MPV 11.3 H Immature Gran % (Auto) 0.3 Neut % (Auto) 80.9 Lymph % (Auto) 10.1 Camp % (Auto) 8.6 Eos % (Auto) 0.0 Baso % (Auto) 0.1 Neut # (Auto) 6.23 Lymph # (Auto) 0.78 L Camp # (Auto) 0.66 H Eos # (Auto) 0.00 Baso # (Auto) 0.01 Immature Gran # (Auto) 0.02 PT INR D-Dimer Sodium Potassium Chloride Carbon Dioxide Anion Gap BUN Creatinine Est Cr Clr Drug Dosing Est GFR ( Amer) Est GFR (Non-Af Amer) BUN/Creatinine Ratio Glucose Calcium Ferritin Total Bilirubin Direct Bilirubin AST ALT Alkaline Phosphatase Total Protein Albumin Blood Type Pending Antibody Screen Pending (1) Syncope Syncope type: unspecified Qualified Code(s): R55 - Syncope and collapse (2) Hypotension Hypotension type: unspecified hypotension type Qualified Code(s): I95.9 - Hypotension, unspecified
[2020-07-11 18:33] LABS: Appearance Urine Clear (Clear); Bacteria Urine Automated Negative (Negative); Bilirubin Urine Negative (Negative); Blood Urine Negative (Negative); Color Urine Dark Yellow; Glucose Urine UA Negative (Negative); Ketones Urine Negative (Negative); Leukocyte Esterase Urine Negative (Negative); Nitrite Urine Negative (Negative); Protein Urine 1+ (Negative); RBC Urine Automated 0-4 /hpf (0-4); Specific Gravity Urine 1.031 (1.000-1.030); Urobilinogen Urine Negative (Negative)
[2020-07-11] MEDS: WARFARIN SOD 2.5 MG TAB PO SCH (18:40)
[2020-07-11] MEDS: SODIUM CHLORIDE 0.9% 10ML FLUSH IV SCH (20:22)
[2020-07-11] MEDS: CHOLECALCIFEROL 1,000 UNITS 25 MCG TAB PO SCH (20:24)
[2020-07-11] MEDS: cefTRIAXone SODIUM 2,000 MG in DEXTROSE 5% 50 ML IV SCH (20:29)
[2020-07-12] MEDS: DOXYCYCLINE HYCLATE 100 MG CAP PO SCH ×2 (06:07→20:22)
[2020-07-12 07:17] LABS: Basophils # (auto) 0.01 K/uL (0-0.2); Basophils % (auto) 0.1 %; Hematocrit (blood only) 41.3 % (42-52); Hemoglobin 14.2 g/dL (14.0-18.0); INR 2.7 (0.9-1.1); Immature Granulocytes # (auto) 0.01 K/uL (0.00-0.02); Immature Granulocytes % (auto) 0.1 %; Lymphocytes % (auto) 7.8 %; Mean Corpuscular Hemoglobin 34.5 pg (25-34); Mean Corpuscular Hgb Conc 34.4 g/dL (32-36); Mean Corpuscular Volume 100.5 fL (80-100); Mean Platelet Volume 11.9 fL (7.4-10.4); Monocytes # (auto) 0.68 K/uL (0.11-0.59); Monocytes % (auto) 7.6 %; Neutrophils # (auto) 7.53 K/uL (1.4-6.5); Neutrophils % (auto) 84.4 %; Platelet Count 137 K/uL (130-400); Prothrombin Time 25.7 Seconds (9.0-12.0); RDW Coefficient of Variation 14.1 % (11.5-14.5); RDW Standard Deviation 51.5 fL (36.4-46.3); Red Blood Count 4.11 M/uL (4.7-6.1); White Blood Count 8.93 K/uL (4.8-10.8)
[2020-07-12 07:37] LABS: Albumin Level 2.8 gm/dl (3.4-5.0); BUN Creatinine Ratio 32.3 (10-20); Bilirubin Direct 0.2 mg/dl (0-0.2); Calcium 8.3 mg/dl (8.5-10.1); Creatinine Clr Calc Pharmacy 83.5 ml/min; Est GFR (African American) 101.6; Est GFR (Non-African American) 87.7; Potassium 4.2 mmol/L (3.5-5.1)
[2020-07-12 07:51] LABS: Bilirubin,Total 0.8 mg/dl (0.2-1); Total Protein 5.7 gm/dl (6.4-8.2)
[2020-07-12] MEDS: CHOLECALCIFEROL 1,000 UNITS 25 MCG TAB PO SCH ×2 (08:51→20:22)
[2020-07-12] MEDS: guaiFENesin 600 MG TABCR PO SCH ×2 (08:51→20:21)
[2020-07-12] MEDS: CALCIUM CARBONATE 1250MG TAB PO SCH (08:51)
[2020-07-12] MEDS: CEROVITE ADV FORMULA TAB PO SCH ×2 (08:51→20:21)
[2020-07-12] MEDS: dexAMETHasone 6 MG in SYRINGE 0 ML IV SCH (08:51)
[2020-07-12] MEDS: dilTIAZem ER 180 MG CAPCR PO SCH (08:51)
[2020-07-12] MEDS: ASPIRIN 81 MG ECTAB PO SCH (08:51)
[2020-07-12] MEDS: lisinopril 10 MG TAB PO SCH (08:52)
[2020-07-12 09:20] LABS: C Reactive Protein 0.83 mg/dl (0-0.29); Ferritin 858.6 ng/ml (8-388)
[2020-07-12 09:46] LABS: D Dimer 1580 ug/L FEU (0-500)
--- NOTE | 2020-07-12 09:50 | XRay Report ---
XR chest 1V portable CLINICAL HISTORY: F FUP covid PNEUMONIA COMPARISON STUDY: Chest radiograph July 10, 2020. FINDINGS: Lung volumes are normal. There is no pneumothorax or pleural effusion. Cardiomegaly is unch anged. Interstitial thickening and bilateral opacities have slightly improved. There is no evidence f or pulmonary edema. IMPRESSION: Slight improvement in bilateral opacities and interstitial thickening suggestive of an i nfectious process. ACT 112: Negative or not required by law. Electronically signed by: Surendra Yarbrough M.D. 07/12/2020 9:49 AM
[2020-07-12] MEDS: REMDESIVIR 100 MG in SODIUM CHLORIDE 0.9% 230 ML IV SCH (12:24)
[2020-07-12] MEDS: ADVANCED PROBIOTIC 1250 MG CAPSULE PO SCH (12:24)
[2020-07-12] MEDS: WARFARIN SOD 2.5 MG TAB PO SCH (15:53)
--- NOTE | 2020-07-12 16:14 | Hospitalist Progress Note ---
Date of Service July 12, 2020 Assessment & Plan (1) COVID-19: Acute Hypoxemic resp failure due to COVID 19 infection continues to clinically improve currently O2 requirement down to 1L via NC D dimer down to 1580 Ferritin 1000--> 800 repeat CXR 07/12: improving bilateral infiltrates continue Remdesivir, Decadron Day 4/ continue Ceftriaxone + Doxycycline Day 4/5 Gettering Filament Machine Operator consulted- recommendations noted improving overall INR therapeutic updated and discussed plan of care with patient's son in Law Dr. Wong in detail and at length we have decided to administer Convalescent plasma in the event that patient's clinical status declines - requires 4-5 L O2 via NC order to obtain plasma placed but needs to call Dr. Hull/Dr. Daniels first prior to transfusion will need to pre-treat with Tylenol 500mg po prior to transfusion (2) Metabolic encephalopathy: per admitting SVC notes: baseline dementia, worsening of mental status , lethargy due to acute illness , COVID [address] head negative for acute illness pt was much more awake and alert after wards able to answer simple questions can not recall being sick and coming to Hospital no slurred speech or dysarthria , no complain of headache or visual disturbance patient pleasantly confused stable, easily reoriented monitor closely for hospital delirium, corticosteroid induced psychosis discussed with RN (3) Syncope: per admitting SVC notes: brief episode of syncope possible due to acute illness , hypotension CT head negative awake and alert after IV fluid BP remains stable now monitor in tele eval for any cardiac arrhythmia resting ECHO not ordered -to limit infection no evidence of ACS -or indication for acute cardiac intervention pt would benefit with out pt ECHO in 3-4 weeks after recovering from COVID 19 infection --- BP stable currently on A fib, rate controlled (4) Hypotension: per admitting SVC notes: brief episode of hypotension due to acute illness /dehydration BP stable after IV fluids no evidence of sepsis Diltiazem continued with holding parameters ( high risk for Afib RVR in acute illness ) -- BP stable overall (5) Chronic atrial fibrillation: rate controlled cont Verapamil with holding parameters for hypotension /bradycardia INR 2.7 coumadin 2.5mg po daily INR daily plan of care discussed in detail and at length with patient's Lyubov and son in Law Dr. Wong over the phone all questions answered they are understanding, agreeable, comfortable with the plan of care Disposition : lives in independent living at [facility] at [facility] PT/OT eval , will need Rehab medical services manager on board Admission and Anticipated Discharge Date Admission Date: July 09, 2020 Subjective ff up for COVID 19 pneumonia seen resting in bed, sitting up comfortable not in distress, on 1 L NC- 94-96% oriented to person, calm, cooperative easily re oriented states he feels improved daily no dyspnea, cough, chest pain, abdominal pain, leg pain (+) BMs appetite is good no other issues per senior analyst of Systems Review of Systems: All systems reviewed & are unremarkable except as noted in Subjective Physical Exam Physical Exam: General- oriented x 1, not in distress, speaks in sentences with no effort or accessory muscle use Eyes- anicteric Neck- no JVD Lungs-mild rales at the left base, clear on the right good air entry BL no wheezing Heart- normal rate, irregularly irregular rhythm; no murmurs Abdomen- normal bowel sounds, nondistended, soft, nontender Extremities- no pretibial edema, no calf tenderness Neuro- alert, oriented x 1; decreased hearing, otherwise no gross focal neurologic deficits Skin- warm & dry Results & Data Results & Data ([facility]) Vital Signs (Past 12 Hours) Vital Signs Temp Pulse Pulse Pulse Resp BP BP 07/12/20 16:13 53 L 07/12/20 16:10 36.5 C 66 19 119/73 07/12/20 12:42 36.5 C 88 16 116/72 07/12/20 08:00 88 07/12/20 07:44 36.4 C L 91 H 20 133/73 07/12/20 05:04 36.6 C 69 20 108/73 Pulse Ox 07/12/20 16:13 07/12/20 16:10 93 07/12/20 12:42 94 07/12/20 08:00 07/12/20 07:44 97 07/12/20 05:04 96 Laboratory Results Laboratory Results - last 24 hr 07/11/20 07/11/20 07/12/20 05:25 18:15 06:18 WBC RBC Hgb Hct MCV MCH MCHC RDW Std Deviation RDW Coeff of Myrna Plt Count MPV Immature Gran % (Auto) Neut % (Auto) Lymph % (Auto) Power % (Auto) Eos % (Auto) Baso % (Auto) Neut # (Auto) Lymph # (Auto) Power # (Auto) Eos # (Auto) Baso # (Auto) Immature Gran # (Auto) PT 25.7 H INR 2.7 H D-Dimer Sodium Potassium Chloride Carbon Dioxide Anion Gap BUN Creatinine Est Cr Clr Drug Dosing Est GFR ( Amer) Est GFR (Non-Af Amer) BUN/Creatinine Ratio Glucose Calcium Ferritin Total Bilirubin Direct Bilirubin AST ALT Alkaline Phosphatase C-Reactive Protein Total Protein Albumin Urine Color Dark Yellow Urine Appearance Clear Urine pH 5.0 Ur Specific Tanner 1.031 H Urine Protein 1+ H Urine Glucose (UA) Negative Urine Ketones Negative Urine Blood Negative Urine Nitrite Negative Urine Bilirubin Negative Urine Urobilinogen Negative Ur Leukocyte Esterase Negative Urine WBC (Auto) 1-5 Urine RBC (Auto) 0-4 U Hyaline Cast (Auto) 1-5 U Epithel Cells (Auto) 10-20 H Urine Bacteria (Auto) Negative Blood Type O Negative Antibody Screen NEGATIVE 07/12/20 07/12/20 07/12/20 06:18 06:18 06:18 WBC 8.93 RBC 4.11 L Hgb 14.2 Hct 41.3 L MCV 100.5 H MCH 34.5 H MCHC 34.4 RDW Std Deviation 51.5 H RDW Coeff of Myrna 14.1 Plt Count 137 MPV 11.9 H Immature Gran % (Auto) 0.1 Neut % (Auto) 84.4 Lymph % (Auto) 7.8 Power % (Auto) 7.6 Eos % (Auto) 0.0 Baso % (Auto) 0.1 Neut # (Auto) 7.53 H Lymph # (Auto) 0.70 L Power # (Auto) 0.68 H Eos # (Auto) 0.00 Baso # (Auto) 0.01 Immature Gran # (Auto) 0.01 PT INR D-Dimer 1580 H* Sodium 140 Potassium 4.2 Chloride 107 Carbon Dioxide 28 Anion Gap 5.0 BUN 22 H Creatinine 0.68 Est Cr Clr Drug Dosing 83.5 Est GFR ( Amer) 101.6 Est GFR (Non-Af Amer) 87.7 BUN/Creatinine Ratio 32.3 H Glucose 108 H Calcium 8.3 L Ferritin Total Bilirubin 0.8 Direct Bilirubin 0.2 AST 43 H ALT 53 Alkaline Phosphatase 67 C-Reactive Protein Total Protein 5.7 L Albumin 2.8 L Urine Color Urine Appearance Urine pH Ur Specific Tanner Urine Protein Urine Glucose (UA) Urine Ketones Urine Blood Urine Nitrite Urine Bilirubin Urine Urobilinogen Ur Leukocyte Esterase Urine WBC (Auto) Urine RBC (Auto) U Hyaline Cast (Auto) U Epithel Cells (Auto) Urine Bacteria (Auto) Blood Type Antibody Screen 07/12/20 06:18 WBC RBC Hgb Hct MCV MCH MCHC RDW Std Deviation RDW Coeff of Myrna Plt Count MPV Immature Gran % (Auto) Neut % (Auto) Lymph % (Auto) Power % (Auto) Eos % (Auto) Baso % (Auto) Neut # (Auto) Lymph # (Auto) Power # (Auto) Eos # (Auto) Baso # (Auto) Immature Gran # (Auto) PT INR D-Dimer Sodium Potassium Chloride Carbon Dioxide Anion Gap BUN Creatinine Est Cr Clr Drug Dosing Est GFR ( Amer) Est GFR (Non-Af Amer) BUN/Creatinine Ratio Glucose Calcium Ferritin 858.6 H Total Bilirubin Direct Bilirubin AST ALT Alkaline Phosphatase C-Reactive Protein 0.83 H Total Protein Albumin Urine Color Urine Appearance Urine pH Ur Specific Tanner Urine Protein Urine Glucose (UA) Urine Ketones Urine Blood Urine Nitrite Urine Bilirubin Urine Urobilinogen Ur Leukocyte Esterase Urine WBC (Auto) Urine RBC (Auto) U Hyaline Cast (Auto) U Epithel Cells (Auto) Urine Bacteria (Auto) Blood Type Antibody Screen (1) Syncope Syncope type: unspecified Qualified Code(s): R55 - Syncope and collapse (2) Hypotension Hypotension type: unspecified hypotension type Qualified Code(s): I95.9 - Hypotension, unspecified
[2020-07-12] MEDS: ATORVASTATIN 20 MG TAB PO SCH (20:21)
[2020-07-12] MEDS: SODIUM CHLORIDE 0.9% 10ML FLUSH IV SCH (20:25)
[2020-07-12] MEDS: cefTRIAXone SODIUM 2,000 MG in DEXTROSE 5% 50 ML IV SCH (22:00)
[2020-07-13] MEDS ORDERED: MELATONIN 3 MG TAB PO PRN (01:46)
[2020-07-13 05:46] LABS: Hematocrit (blood only) 42.8 % (42-52); Immature Granulocytes # (auto) 0.03 K/uL (0.00-0.02); Immature Granulocytes % (auto) 0.3 %; Lymphocytes # (auto) 1.59 K/uL (1.2-3.4); Lymphocytes % (auto) 14.6 %; Mean Corpuscular Volume 99.8 fL (80-100); Mean Platelet Volume 11.8 fL (7.4-10.4); Monocytes # (auto) 0.12 K/uL (0.11-0.59); Monocytes % (auto) 1.1 %; Neutrophils # (auto) 9.13 K/uL (1.4-6.5); Platelet Count 167 K/uL (130-400); RDW Coefficient of Variation 13.8 % (11.5-14.5); RDW Standard Deviation 50.6 fL (36.4-46.3); Red Blood Count 4.29 M/uL (4.7-6.1); White Blood Count 10.87 K/uL (4.8-10.8)
[2020-07-13 06:22] LABS: Albumin Level 3.1 gm/dl (3.4-5.0); Bilirubin Direct 0.2 mg/dl (0-0.2); Calcium 8.2 mg/dl (8.5-10.1); Creatinine Clr Calc Pharmacy 75.7 ml/min; Est GFR (African American) 97.6; Est GFR (Non-African American) 84.2; Potassium 3.9 mmol/L (3.5-5.1)
[2020-07-13 06:24] LABS: Bilirubin,Total 0.9 mg/dl (0.2-1); Total Protein 6.1 gm/dl (6.4-8.2)
[2020-07-13] MEDS: DOXYCYCLINE HYCLATE 100 MG CAP PO SCH ×2 (06:43→18:35)
[2020-07-13 08:12] LABS: INR 3.8 (0.9-1.1); Prothrombin Time 34.6 Seconds (9.0-12.0)
[2020-07-13] MEDS: guaiFENesin 600 MG TABCR PO SCH ×2 (09:03→21:04)
[2020-07-13] MEDS: dexAMETHasone 6 MG in SYRINGE 0 ML IV SCH (09:03)
[2020-07-13] MEDS: CEROVITE ADV FORMULA TAB PO SCH ×2 (09:04→21:04)
[2020-07-13] MEDS: CALCIUM CARBONATE 1250MG TAB PO SCH (09:04)
[2020-07-13] MEDS: CHOLECALCIFEROL 1,000 UNITS 25 MCG TAB PO SCH ×2 (09:05→21:03)
[2020-07-13] MEDS: dilTIAZem ER 180 MG CAPCR PO SCH (09:05)
[2020-07-13] MEDS: ASPIRIN 81 MG ECTAB PO SCH (09:05)
[2020-07-13] MEDS: lisinopril 10 MG TAB PO SCH (09:06)
[2020-07-13] MEDS: ADVANCED PROBIOTIC 1250 MG CAPSULE PO SCH (09:06)
[2020-07-13] MEDS: REMDESIVIR 100 MG in SODIUM CHLORIDE 0.9% 230 ML IV SCH (12:17)
[2020-07-13] MEDS: SODIUM CHLORIDE 0.9% 10ML FLUSH IV SCH (12:17)
--- NOTE | 2020-07-13 18:38 | Hospitalist Progress Note ---
Date of Service July 13, 2020 Assessment & Plan (1) COVID-19: Acute Hypoxemic resp failure due to COVID 19 infection continues to clinically improve currently weaned off O2 D dimer down to 1580 Ferritin 1000--> 800 repeat markers tomorrow repeat CXR 07/12: improving bilateral infiltrates continue Remdesivir, Decadron Day 10/02 continue Ceftriaxone + Doxycycline Day 10/02 Customer Success Specialist consulted- recommendations noted improving overall INR 3.8 updated and discussed plan of care with patient's son in Law Dr. Wong in detail and at length we have decided to administer Convalescent plasma in the event that patient's clinical status declines - requires 4-5 L O2 via NC order to obtain plasma placed but needs to call Dr. Hull/Dr. Daniels first prior to transfusion will need to pre-treat with Tylenol 500mg po prior to transfusion (2) Metabolic encephalopathy: per admitting SVC notes: baseline dementia, worsening of mental status , lethargy due to acute illness , COVID [address] head negative for acute illness pt was much more awake and alert after wards able to answer simple questions can not recall being sick and coming to Hospital no slurred speech or dysarthria , no complain of headache or visual disturbance patient pleasantly confused stable, easily reoriented monitor closely for hospital delirium, corticosteroid induced psychosis discussed with RN (3) Syncope: per admitting SVC notes: brief episode of syncope possible due to acute illness , hypotension CT head negative awake and alert after IV fluid BP remains stable now monitor in tele eval for any cardiac arrhythmia resting ECHO not ordered -to limit infection no evidence of ACS -or indication for acute cardiac intervention pt would benefit with out pt ECHO in 3-4 weeks after recovering from COVID 19 infection --- BP stable currently on A fib, rate controlled (4) Hypotension: per admitting SVC notes: brief episode of hypotension due to acute illness /dehydration BP stable after IV fluids no evidence of sepsis Diltiazem continued with holding parameters ( high risk for Afib RVR in acute illness ) -- BP stable overall (5) Chronic atrial fibrillation: rate controlled cont Verapamil with holding parameters for hypotension /bradycardia INR 3.8 hold coumadin 2.5mg po daily INR daily plan of care discussed in detail and at length with patient's son in Law Dr. Wong over the phone all questions answered he is understanding, agreeable, comfortable with the plan of care Disposition : lives in independent living at [facility] PT/OT eval , will need Rehab customs manager on board Admission and Anticipated Discharge Date Admission Date: July 09, 2020 Subjective ff up for covid pneumonia, hypoxia seen resting in bed, comfortable off O2, 96% on RA sleeping but easily awakened pleasantly confused states he feels fine, continues to improve no dyspnea, cough, chest pain no other symptoms appetite is good per staffing coordinator Review of Systems Review of Systems: All systems reviewed & are unremarkable except as noted in Subjective Physical Exam Physical Exam: General- oriented x1, not in distress, speaks in sentences with no effort or accessory muscle use Eyes- anicteric Neck- no JVD Lungs- clear breath sounds BL no rales no wheezing Heart- normal rate,irregularly irregular rhythm; no murmurs Abdomen- normal bowel sounds, nondistended, soft, nontender Extremities- no pretibial edema, no calf tenderness Neuro- alert, oriented x 1; no gross focal neurologic deficits Skin- warm & dry Results & Data Results & Data ([facility]) Vital Signs (Past 12 Hours) Vital Signs Temp Pulse Pulse Resp BP BP Pulse Ox 07/13/20 16:17 69 07/13/20 15:00 36.5 C 67 16 126/67 95 07/13/20 11:14 36.5 C 83 21 133/79 100 07/13/20 09:27 103 H 07/13/20 07:54 36.5 C 96 H 23 125/72 99 (1) Syncope Syncope type: unspecified Qualified Code(s): R55 - Syncope and collapse (2) Hypotension Hypotension type: unspecified hypotension type Qualified Code(s): I95.9 - Hypotension, unspecified
[2020-07-13] MEDS: ATORVASTATIN 20 MG TAB PO SCH (21:03)
[2020-07-13] MEDS: cefTRIAXone SODIUM 2,000 MG in DEXTROSE 5% 50 ML IV SCH (21:04)
[2020-07-14] MEDS: DOXYCYCLINE HYCLATE 100 MG CAP PO SCH ×2 (06:10→19:30)
[2020-07-14 06:48] LABS: INR 5.1 (0.9-1.1); Prothrombin Time 45.2 Seconds (9.0-12.0)
[2020-07-14 06:49] LABS: Albumin Level 2.8 gm/dl (3.4-5.0); BUN Creatinine Ratio 32.4 (10-20); Bilirubin Direct 0.3 mg/dl (0-0.2); C Reactive Protein 0.35 mg/dl (0-0.29); Est GFR (African American) 99.9; Est GFR (Non-African American) 86.2
[2020-07-14 06:53] LABS: Bilirubin,Total 0.9 mg/dl (0.2-1); Ferritin 676.5 ng/ml (8-388); Total Protein 5.5 gm/dl (6.4-8.2)
[2020-07-14 06:55] LABS: D Dimer 2120 ug/L FEU (0-500)
[2020-07-14 08:13] LABS: Hematocrit (blood only) 40.3 % (42-52); Immature Granulocytes # (auto) 0.03 K/uL (0.00-0.02); Immature Granulocytes % (auto) 0.3 %; Lymphocytes # (auto) 0.64 K/uL (1.2-3.4); Lymphocytes % (auto) 7.5 %; Mean Corpuscular Hemoglobin 34.8 pg (25-34); Mean Corpuscular Hgb Conc 34.7 g/dL (32-36); Mean Corpuscular Volume 100.2 fL (80-100); Monocytes # (auto) 0.92 K/uL (0.11-0.59); Monocytes % (auto) 10.7 %; Neutrophils # (auto) 6.99 K/uL (1.4-6.5); Neutrophils % (auto) 81.5 %; Platelet Count 167 K/uL (130-400); RDW Coefficient of Variation 13.9 % (11.5-14.5); RDW Standard Deviation 50.7 fL (36.4-46.3); Red Blood Count 4.02 M/uL (4.7-6.1); White Blood Count 8.58 K/uL (4.8-10.8)
[2020-07-14] MEDS: guaiFENesin 600 MG TABCR PO SCH ×2 (08:46→20:40)
[2020-07-14] MEDS: CEROVITE ADV FORMULA TAB PO SCH ×2 (08:46→20:40)
[2020-07-14] MEDS: dilTIAZem ER 180 MG CAPCR PO SCH (08:47)
[2020-07-14] MEDS: CHOLECALCIFEROL 1,000 UNITS 25 MCG TAB PO SCH ×2 (08:47→20:40)
[2020-07-14] MEDS: ADVANCED PROBIOTIC 1250 MG CAPSULE PO SCH (08:48)
[2020-07-14] MEDS: dexAMETHasone 6 MG in SYRINGE 0 ML IV SCH (08:48)
[2020-07-14] MEDS: lisinopril 10 MG TAB PO SCH (08:49)
[2020-07-14] MEDS: CALCIUM CARBONATE 1250MG TAB PO SCH (08:49)
--- NOTE | 2020-07-14 17:25 | Hospitalist Progress Note ---
Date of Service July 14, 2020 Assessment & Plan (1) COVID-19: Acute Hypoxemic resp failure due to COVID 19 infection continues to clinically improve currently weaned off O2, saturating more than 93% D dimer mildly increased from 1580 to 2120 Ferritin 1000--> 800, down to 600 Therapy also decreasing from 0.8 to 0.3 repeat CXR 07/12: improving bilateral infiltrates Repeat chest x-ray today: Pending Completed 5 days of remdesivir Continue Decadron Day 6 out of 10 continue Ceftriaxone + Doxycycline Day 6 out of 7 Legal Adviser consulted- recommendations noted improving overall INR 1.1 updated and discussed plan of care with patient's son in Law Dr. Wong in detail and at length we have decided to administer Convalescent plasma in the event that patient's clinical status declines - requires 4-5 L O2 via NC order to obtain plasma placed but needs to call Dr. Hull/Dr. Daniels first prior to transfusion will need to pre-treat with Tylenol 500mg po prior to transfusion (2) Metabolic encephalopathy: per admitting SVC notes: baseline dementia, worsening of mental status , lethargy due to acute illness , COVID [address] head negative for acute illness pt was much more awake and alert after wards able to answer simple questions can not recall being sick and coming to Hospital no slurred speech or dysarthria , no complain of headache or visual disturbance patient pleasantly confused stable, easily reoriented--> no changes monitor closely for hospital delirium, corticosteroid induced psychosis discussed with RN (3) Syncope: per admitting SVC notes: brief episode of syncope possible due to acute illness , hypotension CT head negative awake and alert after IV fluid BP remains stable now monitor in tele eval for any cardiac arrhythmia resting ECHO not ordered -to limit infection no evidence of ACS -or indication for acute cardiac intervention pt would benefit with out pt ECHO in 3-4 weeks after recovering from COVID 19 infection --- BP stable currently on A fib, rate controlled (4) Hypotension: per admitting SVC notes: brief episode of hypotension due to acute illness /dehydration BP stable after IV fluids no evidence of sepsis Diltiazem continued with holding parameters ( high risk for Afib RVR in acute illness ) -- BP stable overall (5) Chronic atrial fibrillation: rate controlled cont Verapamil with holding parameters for hypotension /bradycardia INR 5.1 No signs of bleeding hold coumadin 2.5mg po daily INR daily plan of care discussed in detail and at length with patient's Lyubov and son in Law Dr. Wong over the phone all questions answered They are understanding, agreeable, comfortable with the plan of care Disposition : lives in independent living at [facility] at [facility] PT/OT eval , will need Rehab field case manager on board Admission and Anticipated Discharge Date Admission Date: July 09, 2020 Subjective Follow-up with Covid pneumonia, with hypoxia, etc. Seen sitting up in bed, sleeping but easily awakened Comfortable, not in distress, breathing with no effort Oriented times person, otherwise pleasantly confused, but easily reoriented States that he feels better today With congestion resolved, no cough, or shortness of breath, chest pain or palpitations Appetite is good No leg pain, ambulated in the hallways 500 feet with no problems No other symptoms Review of Systems Review of Systems: All systems reviewed & are unremarkable except as noted in Subjective Physical Exam Physical Exam: General- oriented x 1, not in distress, speaks in sentences with no effort or accessory muscle use Eyes- anicteric Neck- no JVD Lungs- clear breath sounds bilaterally, no crackles, no wheezing appreciated Heart- normal rate, irregularly irregular rhythm; no murmurs Abdomen- normal bowel sounds, nondistended, soft, nontender Extremities- no pretibial edema, no calf tenderness Neuro- alert, oriented x 1; no gross focal neurologic deficits Skin- warm & dry Results & Data Results & Data ([facility]) Vital Signs (Past 12 Hours) Vital Signs Temp Pulse Pulse Resp BP Pulse Ox 07/14/20 15:12 36.5 C 72 16 123/72 96 07/14/20 09:25 94 H 07/14/20 07:03 36.6 C 91 H 16 121/82 90 Laboratory Results Laboratory Results - last 24 hr 07/14/20 07/14/20 07/14/20 05:43 05:43 05:47 WBC 8.58 RBC 4.02 L Hgb 14.0 Hct 40.3 L MCV 100.2 H MCH 34.8 H MCHC 34.7 RDW Std Deviation 50.7 H RDW Coeff of Myrna 13.9 Plt Count 167 MPV 12.0 H Immature Gran % (Auto) 0.3 Neut % (Auto) 81.5 Lymph % (Auto) 7.5 Coleman % (Auto) 10.7 Eos % (Auto) 0.0 Baso % (Auto) 0.0 Neut # (Auto) 6.99 H Lymph # (Auto) 0.64 L Coleman # (Auto) 0.92 H Eos # (Auto) 0.00 Baso # (Auto) 0.00 Immature Gran # (Auto) 0.03 H PT 45.2 H INR 5.1 H D-Dimer 2120 H* Sodium 140 Potassium 4.0 Chloride 107 Carbon Dioxide 28 Anion Gap 5.0 BUN 23 H Creatinine 0.71 Est Cr Clr Drug Dosing 80.0 Est GFR ( Amer) 99.9 Est GFR (Non-Af Amer) 86.2 BUN/Creatinine Ratio 32.4 H Glucose 107 H Calcium 8.0 L Ferritin 676.5 H Total Bilirubin 0.9 Direct Bilirubin 0.3 H AST 34 ALT 72 Alkaline Phosphatase 68 C-Reactive Protein 0.35 H Total Protein 5.5 L Albumin 2.8 L (1) Syncope Syncope type: unspecified Qualified Code(s): R55 - Syncope and collapse (2) Hypotension Hypotension type: unspecified hypotension type Qualified Code(s): I95.9 - Hypotension, unspecified
--- NOTE | 2020-07-14 18:09 | XRay Report ---
XR chest 1V portable CLINICAL HISTORY: Covid pneumonia. Follow-up study. COMPARISON STUDY: July 10, 2020 FINDINGS: The heart remains enlarged. There are no pleural effusions. There is slight improvement in the bilateral pulmonary opacities.[ IMPRESSION: Further slight improvement in the bilateral pulmonary opacities. ACT 112: Negative or not required by law. Electronically signed by: Danilo Chisholm M.D. 07/14/2020 6:08 PM
[2020-07-14] MEDS: ATORVASTATIN 20 MG TAB PO SCH (20:40)
[2020-07-15] MEDS: DOXYCYCLINE HYCLATE 100 MG CAP PO SCH ×2 (05:58→18:25)
[2020-07-15 06:27] LABS: Basophils # (auto) 0.02 K/uL (0-0.2); Basophils % (auto) 0.2 %; Hematocrit (blood only) 41.7 % (42-52); Hemoglobin 14.4 g/dL (14.0-18.0); Immature Granulocytes # (auto) 0.14 K/uL (0.00-0.02); Immature Granulocytes % (auto) 1.3 %; Lymphocytes # (auto) 1.87 K/uL (1.2-3.4); Lymphocytes % (auto) 17.9 %; Mean Corpuscular Hemoglobin 34.4 pg (25-34); Mean Corpuscular Hgb Conc 34.5 g/dL (32-36); Mean Corpuscular Volume 99.8 fL (80-100); Mean Platelet Volume 12.1 fL (7.4-10.4); Monocytes # (auto) 0.13 K/uL (0.11-0.59); Monocytes % (auto) 1.2 %; Neutrophils % (auto) 79.4 %; Platelet Count 179 K/uL (130-400); RDW Coefficient of Variation 13.9 % (11.5-14.5); RDW Standard Deviation 50.7 fL (36.4-46.3); Red Blood Count 4.18 M/uL (4.7-6.1); White Blood Count 10.46 K/uL (4.8-10.8)
[2020-07-15 06:52] LABS: Alanine Aminotransferase 63 U/L (12-78); Albumin Level 2.9 gm/dl (3.4-5.0); Aspartate Aminotransferase 25 U/L (15-37); BUN Creatinine Ratio 31.3 (10-20); Blood Urea Nitrogen 23 mg/dl (7-18); C Reactive Protein < 0.29 mg/dl (0-0.29); Calcium 8.5 mg/dl (8.5-10.1); Carbon Dioxide 24 mmol/L (21-32); Chloride 106 mmol/L (98-107); Creatinine Clr Calc Pharmacy 78.9 ml/min; Est GFR (African American) 99.3; Est GFR (Non-African American) 85.7; Glucose 132 mg/dl (70-99); Potassium 4.1 mmol/L (3.5-5.1); Sodium 139 mmol/L (136-145)
[2020-07-15 06:56] LABS: Alkaline Phosphatase 68 U/L (45-117); Bilirubin Direct 0.3 mg/dl (0-0.2); Bilirubin,Total 1.2 mg/dl (0.2-1); Ferritin 697.8 ng/ml (8-388); Total Protein 5.5 gm/dl (6.4-8.2)
[2020-07-15 06:57] LABS: INR 3.1 (0.9-1.1); Prothrombin Time 28.8 Seconds (9.0-12.0)
[2020-07-15 07:04] LABS: D Dimer 2070 ug/L FEU (0-500)
[2020-07-15] MEDS: CHOLECALCIFEROL 1,000 UNITS 25 MCG TAB PO SCH ×2 (08:03→20:43)
[2020-07-15] MEDS: CEROVITE ADV FORMULA TAB PO SCH ×2 (08:04→20:43)
[2020-07-15] MEDS: lisinopril 10 MG TAB PO SCH (08:04)
[2020-07-15] MEDS: dilTIAZem ER 180 MG CAPCR PO SCH (08:04)
[2020-07-15] MEDS: CALCIUM CARBONATE 1250MG TAB PO SCH (08:04)
[2020-07-15] MEDS: ADVANCED PROBIOTIC 1250 MG CAPSULE PO SCH (08:04)
[2020-07-15] MEDS: dexAMETHasone 6 MG in SYRINGE 0 ML IV SCH (08:04)
[2020-07-15] MEDS: guaiFENesin 600 MG TABCR PO SCH ×2 (08:05→20:42)
--- NOTE | 2020-07-15 14:46 | Hospitalist Progress Note ---
Date of Service July 15, 2020 Assessment & Plan (1) COVID-19: Acute Hypoxemic resp failure due to COVID 19 infection continues to clinically improve currently weaned off O2, saturating 99% D dimer mildly increased 2209, to 2069 Ferritin 1000--> 800, down to 600s CRP also decreasing from 0.8 to normal repeat CXR 07/12: improving bilateral infiltrates Repeat chest x-ray 07/14: further improvement of infiltrates Completed 5 days of remdesivir Continue Decadron Day 7 out of 10 continue Ceftriaxone + Doxycycline Day 7 out of 7 Electrician Third consulted- recommendations noted improving overall INR 3.1 updated and discussed plan of care with patient's son in Law Dr. Wong in det ail and at length we have decided to administer Convalescent plasma in the event that patient's clinical status declines - requires 4-5 L O2 via NC order to obtain plasma placed but needs to call Dr. Hull/Dr. Daniels first prior to transfusion will need to pre-treat with Tylenol 500mg po prior to transfusion (2) Metabolic encephalopathy: per admitting SVC notes: baseline dementia, worsening of mental status , lethargy due to acute illness , COVID [address] head negative for acute illness pt was much more awake and alert after wards able to answer simple questions can not recall being sick and coming to Hospital no slurred speech or dysarthria , no complain of headache or visual disturbance patient pleasantly confused stable, easily reoriented--> no changes monitor closely for hospital delirium, corticosteroid induced psychosis discussed with RN (3) Syncope: per admitting SVC notes: brief episode of syncope possible due to acute illness , hypotension CT head negative awake and alert after IV fluid BP remains stable now monitor in tele eval for any cardiac arrhythmia resting ECHO not ordered -to limit infection no evidence of ACS -or indication for acute cardiac intervention pt would benefit with out pt ECHO in 3-4 weeks after recovering from COVID 19 infection --- BP stable currently on A fib, rate controlled (4) Hypotension: per admitting SVC notes: brief episode of hypotension due to acute illness /dehydration BP stable after IV fluids no evidence of sepsis Diltiazem continued with holding parameters ( high risk for Afib RVR in acute illness ) -- BP stable overall (5) Chronic atrial fibrillation: rate controlled cont Verapamil with holding parameters for hypotension /bradycardia INR 3.1 No signs of bleeding hold coumadin 2.5mg po daily INR daily Disposition : lives in independent living at [facility] at [facility] PT/OT alejoal , will need Rehab youth manager on board Admission and Anticipated Discharge Date Admission Date: July 09, 2020 Subjective ff up for COVID pneumonia with hypoxia seen resting in bedside chair, comfortable on room air , 99% O2 sats states he feels fine overall no dyspnea, congestion, cough, chest pain no leg pain no bleeding states he feels improved day by day ambulated in the halls with no problem no other symptoms Review of Systems Review of Systems: All systems reviewed & are unremarkable except as noted in Subjective Physical Exam Physical Exam: General- oriented x 1, not in distress, speaks in sentences with no effort or accessory muscle use Eyes- anicteric Neck- no JVD Lungs- clear breath sounds bilaterally no rales no wheezing Heart- normal rate, irreg irregular rhythm; no murmurs Abdomen- normal bowel sounds, nondistended, soft, nontender Extremities- no pretibial edema, no calf tenderness Neuro- alert, oriented x1; no gross focal neurologic deficits Skin- warm & dry Results & Data Results & Data ([facility]) Vital Signs (Past 12 Hours) Vital Signs Temp Pulse Pulse Pulse Resp BP BP 07/15/20 11:50 36.4 C L 90 18 124/84 07/15/20 09:06 83 07/15/20 07:46 36.6 C 94 H 18 137/87 07/15/20 03:58 36.2 C L 96 H 22 149/84 H Pulse Ox 07/15/20 11:50 95 07/15/20 09:06 07/15/20 07:46 91 07/15/20 03:58 92 Laboratory Results Laboratory Results - last 24 hr 07/15/20 07/15/20 07/15/20 05:49 05:49 05:49 WBC 10.46 RBC 4.18 L Hgb 14.4 Hct 41.7 L MCV 99.8 MCH 34.4 H MCHC 34.5 RDW Std Deviation 50.7 H RDW Coeff of Myrna 13.9 Plt Count 179 MPV 12.1 H Immature Gran % (Auto) 1.3 Neut % (Auto) 79.4 Lymph % (Auto) 17.9 [place] % (Auto) 1.2 Eos % (Auto) 0.0 Baso % (Auto) 0.2 Neut # (Auto) 8.30 H Lymph # (Auto) 1.87 [place] # (Auto) 0.13 Eos # (Auto) 0.00 Baso # (Auto) 0.02 Immature Gran # (Auto) 0.14 H PT 28.8 H INR 3.1 H D-Dimer 2070 H* Sodium 139 Potassium 4.1 Chloride 106 Carbon Dioxide 24 Anion Gap 8.0 BUN 23 H Creatinine 0.72 Est Cr Clr Drug Dosing 78.9 Est GFR ( Amer) 99.3 Est GFR (Non-Af Amer) 85.7 BUN/Creatinine Ratio 31.3 H Glucose 132 H Calcium 8.5 Ferritin 697.8 H Total Bilirubin 1.2 H Direct Bilirubin 0.3 H AST 25 ALT 63 Alkaline Phosphatase 68 C-Reactive Protein < 0.29 Total Protein 5.5 L Albumin 2.9 L (1) Syncope Syncope type: unspecified Qualified Code(s): R55 - Syncope and collapse (2) Hypotension Hypotension type: unspecified hypotension type Qualified Code(s): I95.9 - Hypotension, unspecified
[2020-07-15] MEDS: ATORVASTATIN 20 MG TAB PO SCH (20:43)
[2020-07-16 06:37] LABS: Basophils # (auto) 0.03 K/uL (0-0.2); Basophils % (auto) 0.2 %; Hemoglobin 15.2 g/dL (14.0-18.0); Immature Granulocytes # (auto) 0.19 K/uL (0.00-0.02); Immature Granulocytes % (auto) 1.5 %; Lymphocytes # (auto) 2.25 K/uL (1.2-3.4); Lymphocytes % (auto) 18.2 %; Mean Corpuscular Hemoglobin 35.6 pg (25-34); Mean Corpuscular Hgb Conc 35.3 g/dL (32-36); Mean Corpuscular Volume 100.7 fL (80-100); Mean Platelet Volume 11.8 fL (7.4-10.4); Monocytes # (auto) 0.14 K/uL (0.11-0.59); Monocytes % (auto) 1.1 %; Neutrophils # (auto) 9.73 K/uL (1.4-6.5); Nucleated RBC # (auto) 0.03 K/uL (0-0); Nucleated RBC % (auto) 0.3 %; Platelet Count 217 K/uL (130-400); Red Blood Count 4.27 M/uL (4.7-6.1); White Blood Count 12.34 K/uL (4.8-10.8)
[2020-07-16 07:06] LABS: BUN Creatinine Ratio 31.3 (10-20); Blood Urea Nitrogen 23 mg/dl (7-18); C Reactive Protein < 0.29 mg/dl (0-0.29); Calcium 8.8 mg/dl (8.5-10.1); Carbon Dioxide 27 mmol/L (21-32); Chloride 105 mmol/L (98-107); Creatinine Clr Calc Pharmacy 78.9 ml/min; Est GFR (African American) 99.3; Est GFR (Non-African American) 85.7; Glucose 100 mg/dl (70-99); Potassium 4.3 mmol/L (3.5-5.1); Sodium 139 mmol/L (136-145)
[2020-07-16 07:11] LABS: Ferritin 673.1 ng/ml (8-388)
[2020-07-16 07:14] LABS: INR 2.8 (0.9-1.1); Prothrombin Time 26.3 Seconds (9.0-12.0)
[2020-07-16 07:16] LABS: D Dimer 1630 ug/L FEU (0-500)
[2020-07-16] MEDS: lisinopril 10 MG TAB PO SCH (08:02)
[2020-07-16] MEDS: ADVANCED PROBIOTIC 1250 MG CAPSULE PO SCH (08:02)
[2020-07-16] MEDS: CALCIUM CARBONATE 1250MG TAB PO SCH (08:02)
[2020-07-16] MEDS: dexAMETHasone 6 MG in SYRINGE 0 ML IV SCH (08:02)
[2020-07-16] MEDS: CEROVITE ADV FORMULA TAB PO SCH ×2 (08:02→19:49)
[2020-07-16] MEDS: CHOLECALCIFEROL 1,000 UNITS 25 MCG TAB PO SCH ×2 (08:02→19:49)
[2020-07-16] MEDS: guaiFENesin 600 MG TABCR PO SCH ×2 (08:02→19:49)
[2020-07-16] MEDS: dilTIAZem ER 180 MG CAPCR PO SCH (08:02)
[2020-07-16] MEDS: DOXYCYCLINE HYCLATE 100 MG CAP PO SCH ×2 (08:02→19:48)
[2020-07-16 09:30] LABS: Bilirubin Direct 0.4 mg/dl (0-0.2); Bilirubin,Total 1.6 mg/dl (0.2-1); Total Protein 5.8 gm/dl (6.4-8.2)
--- NOTE | 2020-07-16 18:20 | XRay Report ---
XR chest 1V portable HISTORY: Follow up covid pneumonia COMPARISON: Chest 07/14/2020. FINDINGS: No pneumothorax. No pleural effusions. The heart remains mildly enlarged. Hazy bilateral ai rspace opacities are stable to slightly improved. No new focal lung consolidations. No evidence for p ulmonary edema. IMPRESSION: Stable to slight improvement in the bilateral hazy airspace opacities suggesting a resolving pneumoni a. ACT 112: Negative or not required by law. Electronically signed by: Abner Adhikari M.D. 07/16/2020 6:19 PM
--- NOTE | 2020-07-16 18:53 | Hospitalist Progress Note ---
Date of Service July 16, 2020 Assessment & Plan (1) COVID-19: Acute Hypoxemic resp failure due to COVID 19 infection continues to clinically improve currently weaned off O2, saturating 99% D dimer trending down - 2069 to 1630 Ferritin trending down 1000--> down to 600s CRP also normalized serial CXR demonstrating improvement of infiltrates repeat CXR 07/16: Stable to slight improvement in the bilateral hazy airspace opacities suggesting a resolving pneumonia. Completed 5 days of Remdesivir Continue IV Decadron Day 7 out of 10 completed Ceftriaxone + Doxycycline Day 7 out of 7 Getterer consulted- recommendations noted improving overall INR 2.8 anticipate d/c to Rehab part of [facility] tomorrow will need 2 step exercise test prior to discharge d/c on: 2 more days of PO Decadron 6mg daily to complete 10 day course will need heparin SC for DVT prophylaxis if INR < 2 continue Incentive Spirometry every 1hour, Flutter Valve QID repeat D dimer and Ferritin in 2 days to check for continued downtrend (2) Metabolic encephalopathy: per admitting [facility] notes: baseline dementia, worsening of mental status , lethargy due to acute illness , COVID [address] head negative for acute illness pt was much more awake and alert after wards able to answer simple questions can not recall being sick and coming to Hospital no slurred speech or dysarthria , no complain of headache or visual disturbance patient pleasantly confused stable (3) Syncope: per admitting [facility] notes: brief episode of syncope possible due to acute illness , hypotension CT head negative awake and alert after IV fluid BP remains stable now monitor in tele eval for any cardiac arrhythmia resting ECHO not ordered -to limit infection no evidence of ACS -or indication for acute cardiac intervention pt would benefit with out pt ECHO in 3-4 weeks after recovering from COVID 19 infection --- BP stable currently on A fib, rate controlled (4) Hypotension: per admitting [facility] notes: brief episode of hypotension due to acute illness /dehydration BP stable after IV fluids no evidence of sepsis Diltiazem continued with holding parameters ( high risk for Afib RVR in acute illness ) -- BP stable overall (5) Chronic atrial fibrillation: rate controlled cont Verapamil with holding parameters for hypotension /bradycardia INR 2.8 No signs of bleeding hold coumadin 2.5mg po daily INR daily- monitor closely at the [facility] Disposition : transition to [facility] tomorrow 2 step exercise test prior to discharge ff up with PCP in 1 week plan of care discussed in detail and at length with patient's Lyubov and son in Law Geovanny Marvin over the phone all questions answered They are understanding, agreeable, comfortable with the plan of care Admission and Anticipated Discharge Date Admission Date: July 09, 2020 Subjective ff up for COVID 19 pneumonia seen resting in bed, comfortable 99% on room air states he feels fine overall no dyspnea, cough, congestion, chest pain no nausea, abdominal pain, leg pain states he ambulated in the hallways with no problems no other symptoms Review of Systems Review of Systems: All systems reviewed & are unremarkable except as noted in Subjective Physical Exam Physical Exam: General- oriented x 1, not in distress, speaks in sentences with no effort or accessory muscle use Eyes- anicteric Neck- no JVD Lungs- clear breath sounds bilaterally Heart- normal rate, irreg irregular rhythm; no murmurs Abdomen- normal bowel sounds, nondistended, soft, nontender Extremities- no pretibial edema, no calf tenderness Neuro- alert, oriented x 1; no gross focal neurologic deficits Skin- warm & dry Results & Data Results & Data ([facility]) Vital Signs (Past 12 Hours) Vital Signs Temp Pulse Pulse Resp BP BP Pulse Ox 07/16/20 15:57 36.7 C 79 20 125/98 99 07/16/20 11:23 36.8 C 96 H 18 127/88 98 07/16/20 07:52 36.8 C 94 H 20 128/86 97 07/16/20 07:20 95 H (1) Syncope Syncope type: unspecified Qualified Code(s): R55 - Syncope and collapse (2) Hypotension Hypotension type: unspecified hypotension type Qualified Code(s): I95.9 - Hypotension, unspecified
[2020-07-16] MEDS: ATORVASTATIN 20 MG TAB PO SCH (19:48)
[2020-07-17] MEDS: DOXYCYCLINE HYCLATE 100 MG CAP PO SCH (06:17)
[2020-07-17 07:33] LABS: Hematocrit (blood only) 47.2 % (42-52); Hemoglobin 16.3 g/dL (14.0-18.0); Mean Corpuscular Hemoglobin 34.5 pg (25-34); Mean Corpuscular Hgb Conc 34.5 g/dL (32-36); Mean Corpuscular Volume 99.8 fL (80-100); Mean Platelet Volume 11.1 fL (7.4-10.4); Nucleated RBC # (auto) 0.05 K/uL (0-0); Nucleated RBC % (auto) 0.3 %; Platelet Count 255 K/uL (130-400); RDW Standard Deviation 50.9 fL (36.4-46.3); Red Blood Count 4.73 M/uL (4.7-6.1); White Blood Count 17.83 K/uL (4.8-10.8)
[2020-07-17] MEDS: dexAMETHasone 6 MG in SYRINGE 0 ML IV SCH (07:34)
[2020-07-17] MEDS: ASPIRIN 81 MG ECTAB PO SCH (07:35)
[2020-07-17] MEDS: guaiFENesin 600 MG TABCR PO SCH (07:35)
[2020-07-17] MEDS: CEROVITE ADV FORMULA TAB PO SCH (07:35)
[2020-07-17] MEDS: CALCIUM CARBONATE 1250MG TAB PO SCH (07:35)
[2020-07-17] MEDS: CHOLECALCIFEROL 1,000 UNITS 25 MCG TAB PO SCH (07:36)
[2020-07-17] MEDS: ADVANCED PROBIOTIC 1250 MG CAPSULE PO SCH (07:36)
[2020-07-17] MEDS: dilTIAZem ER 180 MG CAPCR PO SCH (07:36)
[2020-07-17] MEDS: lisinopril 10 MG TAB PO SCH (07:36)
[2020-07-17 07:41] LABS: INR 2.7 (0.9-1.1); Prothrombin Time 24.9 Seconds (9.0-12.0)
[2020-07-17 07:47] LABS: D Dimer 1540 ug/L FEU (0-500)
[2020-07-17 07:55] LABS: Basophils # (auto) 0.04 K/uL (0-0.2); Basophils % (auto) 0.2 %; Eosinophils # (auto) 0.01 K/uL (0-0.5); Eosinophils % (auto) 0.1 %; Immature Granulocytes # (auto) 0.47 K/uL (0.00-0.02); Immature Granulocytes % (auto) 2.6 %; Lymphocytes # (auto) 2.18 K/uL (1.2-3.4); Lymphocytes % (auto) 12.2 %; Neutrophils # (auto) 14.23 K/uL (1.4-6.5); Neutrophils % (auto) 79.9 %
[2020-07-17 08:11] LABS: C Reactive Protein < 0.29 mg/dl (0-0.29); Ferritin 694.2 ng/ml (8-388)
--- NOTE | 2020-07-17 11:58 | Discharge Summary ---
Date of Service July 17, 2020 Admission HPI Per Admitting Provider this is a 84 yo M with past medical hx of HTN , chronic afib on Coumadin , CAD , peripheral vascular disease , hx of bladder ca , admitted with pneumonia /hypoxia pt resides in [facility] with his , independent in ADL's , dementia with mostly short time memory loss, usually oriented to place and person . pt has been having low grade fever , nasal congestion for past several days , he and his both received ist dose of Medorna COVID 19 vaccine on 07/04 on 07/06 -pt was more confused , had low grade fever -which lead to ER visit COVID 19 test was positive vital was stable, no hypoxia , lab, chest xray unremarkable , except for positive UA pt was sent home PO keflex ordered for possible UTI pt's is positive for COVID 19 as well this morning , pt was very lethargic , difficult to arouse , had low grade fever in ER pt was found hypoxic SPO2 84% in room air /requiring 2 L 02 ( not on home oxygen ) Cxray no significant infiltrate or effusion D dimer elevated 1800 , along wtih inflammatory markers : elevated ferritin pro andrea wnl pt was found to be hypotensive SBP in 90's in ER , responded to IV fluid iNR therapeutic pt admitted to COVID 19 infection , acute hypoxemic resp failure due to COVID 19 Principal Diagnosis COVID-19 pneumonia with hypoxia Discharge Exam Constitutional WD/WN, vitals as above Eyes + anicteric sclerae Neck trachea midline, no thyromegaly Respiratory normal respiratory effort; no respiratory distress Gastrointestinal (Abdomen) normal bowel sounds, soft, nontender, no hepatosplenomegaly Musculoskeletal no cyanosis or clubbing, extremities motor strength 5/5 Skin no rashes, warm and dry Neurologic PERRL, EOMI, accommodation nl, no face palsy, no dysarthria (baseline dementia) Psychiatric Orientation: alert and oriented to person Discharge Data Allergies Allergy/AdvReac Type Severity Reaction Status Date / Time No Known Allergies Allergy Verified 07/09/20 18:15 Consultations 07/09/20 17:48 ED Decision to Admit Stat 07/10/20 10:40 Consult Pulmonology Routine Ordered Studies 07/09/20 16:57 CT head/brain wo con Stat Hospital Course (1) COVID-19: Acute Hypoxemic resp failure due to COVID 19 infection continues to clinically improve currently weaned off O2, saturating 99% D dimer trending down - 0 to 8547-7721 Ferritin trending down 1000--> down to 600s CRP also normalized Clinically patient improved to baseline, Awake and alert oriented to person, baseline dementia, has not had any fever or chills, no hypoxia, no shortness of breath, Has been able to walk in the room independently serial CXR demonstrating improvement of infiltrates repeat CXR 07/16: Stable to slight improvement in the bilateral hazy airspace opacities suggesting a resolving pneumonia. Completed 5 days of Remdesivir On Decadron Day 8 out of 10 completed Ceftriaxone + Doxycycline Day 7 out of 7 Public Address System Operator consulted- recommendations noted Mild leukocytosis noted possible secondary to steroid induced, no cough no fever chills no evidence of any infection noted Patient is medically stable to be discharged to rehab today,to the [facility] 2 more days of p.o. Decadron prescription sent Patient is discharged on: 2 more days of PO Decadron 6mg daily to complete 10 day course continue Incentive Spirometry every 1hour, Flutter Valve QID repeat D dimer and Ferritin in 2 days to check for continued downtrend (2) Metabolic encephalopathy: Baseline dementia with frequent forgetfulness, Admitted with, worsening of mental status , lethargy due to acute illness , COVID [address] head negative for acute illness Mental status improved, able to answer questions, that he is in hospital patient pleasantly confused stable (3) Syncope: No further episodes since admission brief episode of syncope possible due to acute illness , hypotension CT head negative resting ECHO not ordered -to limit infection no evidence of ACS -or indication for acute cardiac intervention pt would benefit with out pt ECHO in 3-4 weeks after recovering from COVID 19 infection --- BP stable currently on A fib, rate controlled (4) Hypotension: Resolved blood pressure has been stable brief episode of hypotension due to acute illness /dehydration /BP stable after IV fluids no evidence of sepsis Diltiazem continued with holding parameters ( high risk for Afib RVR in acute illness ) -- BP stable overall (5) Chronic atrial fibrillation: rate controlled cont Verapamil with holding parameters for hypotension /bradycardia Coumadin has been kept on hold for last 2 days for elevated INR No signs of bleeding INR 2.7 today, order to hold Coumadin for today Repeat INR tomorrow INR /-resume Coumadin, for the PT/INR check as per protocol Disposition : Patient is discharged to rehab the [facility] today plan of care discussed in detail and at length with patient's Lyubov and son in Law Dr. Wong over the phone all questions answered They are understanding, agreeable, comfortable with the plan of care Total Time Total Time Spent Total Time Spent (In Minutes): 35 minutes Total Time Includes: Examination of the Patient, Discharge Planning and Medication Reconciliation Discharge Plan Discharge Items Patient Disposition: Transfer Custodial Fac Reason For Visit: SYNCOPE/COVID 19 Discharge Diagnosis: COVID-19 pneumonia with hypoxia Activity: Resume your previous activity Activity Comment: Gradually increase as tolerated Lifting: Gradually increase as tolerated Non-emergency contact: Primary Care Provider Call non-emergency contact if: you have any medication questions, your symptoms worsen, your pain is not controlled, your pain is worsening, your pain is unusual for you, your pain is concerning for you and you have a fever Follow-up/Referrals: [facility] [Primary Care Provider] - Diet: Heart Healthy Addtl Attending Provider Instructions: Continue Decadron 6 mg p.o. daily x2 more days. Do not take Coumadin today INR check on 07/18/20 and adjust Coumadin accordingly. Maintain INR between 2-3. Repeat D-dimer and ferritin in 2 days. Continue incentive spirometry every hour and flutter valve 4 times a day. Monitor oxygen saturation daily. Repeat chest x-ray in 4 weeks. Follow-up with primary care physician in 1 week. Please use 02 via Nasal Cnula with activity and at sleep if spo2 < 92 , Pending Studies at Discharge: Yes Studies:: INR check tomorrow 07/18/20 then per protocol CBC, basic metabolic profile, liver panel, D-dimer and ferritin in 2 days Repeat chest x-ray in 4 weeks Stand-Alone Forms: My [facility] Skilled Items Patient informed of condition?: Yes DNR: No Discharge Level of Care: Acute rehab Communicable Disease: Yes Discharge Prognosis: Stable Lines: None Urinary Catheter: No Medications and DC Order Prescriptions: New guaifenesin [Mucinex] 600 mg Tablet Extended Release 12hr 600 mg PO Q12 Qty: 6 RF: 0 Advanced Probiotic 625 mg (10 billion cell) Capsule 2 cap PO DAILY Qty: 14 RF: 0 dexamethasone [Decadron] 6 mg tablet 6 mg PO DAILY Qty: 2 RF: 0 Continued diltiazem HCl [Tiadylt ER] 180 mg capsule,extended release 24 hr 180 mg PO DAILY RF: 0 ammonium lactate 12 % lotion 1 applic topical DIRECTED RF: 0 lisinopril 10 mg tablet 10 mg PO DAILY RF: 0 clotrimazole 1 % solution 1 applic TOPICAL DIRECTED RF: 0 calcium 500 mg Tablet 1,000 mg PO DAILY RF: 0 aspirin [Aspirin Low Dose] 81 mg Tablet,Delayed Release (Dr/Ec) 81 mg PO DAILY RF: 0 cholecalciferol (vitamin D3) [Vitamin D3] 50 mcg (2,000 unit) Capsule 50 mcg PO BID RF: 0 PreserVision AREDS 7,160 unit- 113 mg-100 unit Tablet 1 tab PO BID RF: 0 Changed warfarin [Jantoven] 5 mg tablet 2.5 mg PO DIRECTED Qty: 0 RF: 0 Discontinued simvastatin 20 mg tablet 20 mg PO DAILY RF: 0 cephalexin 500 mg capsule 500 mg PO Q6H 5 Days Qty: 20 RF: 0 Discharge Orders: Discharge Order (Routine); Ordered 07/17/20 Ordered By: Liliane Barrera Admission Data Admit Date/Time: 07/09/20 18:03 Attending Provider: Liliane Barrera Admit Provider: Liliane Barrera [facility] Other Providers: Liliane Barrera ; [facility] ; Navid Valverde ; Andre Harrell ; Hamzah Hull Other Interventions: Discharge Summary Assessment (RN) Last Done: 07/17/20 12:26
== END 2020-07-17 14:03 | DRG 177 ==
LOC: ED 16:39 → SUATTDRO 18:03 → 2E 18:03 → 2W 07-16 18:52